=== PATIENT | female | born 1955 | race Two or more races ===

== ENCOUNTER 2020-06-09 17:57 | Emergency (ER) | payer OTHER, SELFPAY ==
--- NOTE | 2020-06-09 | ECG_ITS ---
Test Reason : CHEST PAIN Blood Pressure : / mmHG Vent. Rate : 070 BPM Atrial Rate : 070 BPM P-R Int : 152 ms QRS Dur : 074 ms QT Int : 384 ms P-R-T Axes : 066 -11 037 degrees QTc Int : 414 ms Normal sinus rhythm Normal ECG No previous ECGs available Referred By: Azucena Blair Electronically Signed By:MADHU ROTHMAN
--- NOTE | ~2020-06-09 | XR_ITS ---
EXAMINATION: XR CHEST CLINICAL INFORMATION: Chest pain COMPARISON: None TECHNIQUE: Frontal view of the chest was obtained. FINDINGS: Normal symmetric lung volumes. No parenchymal consolidation. No pleural effusion. No pneumothorax. Cardiomediastinal silhouette and pulmonary vascularity are within normal limits. No acute osseous abnormalities. XR/XR chest 1V IMPRESSION: Unremarkable examination.
[2020-06-09 18:00] VITALS: BP 158/90; PULSE 70; RESP 16; TEMP 37.1; O2SAT 99
[2020-06-09 18:11] VITALS: BP 157/91; PULSE 69; RESP 18; TEMP 36.7; O2SAT 99; BMI 28.9
--- NOTE | 2020-06-09 18:31 | ED_ITS ---
HPI - Chest Pain General Chief Complaint: Chest Pain Stated Complaint: chest pain Time Seen by Provider: 06/09/20 18:29 Source: patient Mode of arrival: ambulatory Limitations: no limitations History of Present Illness HPI narrative: 64-year-old female well known in the emergency department with chest pain, patient stated that chest pain started 2 weeks ago, pain is progressively getting worse, pain started as intermittent now with progressively more or less constant throughout the day, pain felt like something stuck in the middle of her chest but patient reported no problem with swallowing fluid and solid food, pain is not associated with any other symptoms, never had this pain before, patient otherwise declined any other symptoms of shortness of breath. No recent travel, no lower extremity swelling or pain, no history of PE or DVT. Related Data Previous Rx's Medication Instructions Recorded omeprazole magnesium [Prilosec OTC] 20 mg PO DAILY #30 tab 06/09/20 Allergies Allergy/AdvReac Type Severity Reaction Status Date / Time morphine [MORPHINE] Allergy Unknown ITCHING Unverified 12/24/19 15:13 wheat [WHEAT] AdvReac Unknown NAUSEA/VOMI Unverified 12/24/19 15:13 TING Review of Systems Review of Systems: All other systems are reviewed and are negative Constitutional: Reports as per HPI and Reports no additional constitutional complaints Eyes: Reports as per HPI and Reports no additional eye complaints Reports system reviewed and no additional complaints, except as documented Cardiovascular: Reports as per HPI and Reports no additional cardiovascular complaints Respiratory: Reports as per HPI and Reports no additional respiratory complaints Gastrointestinal: Reports as per HPI and Reports no additional gastrointestinal complaints Genitourinary: Reports no additional female genitourinary complaints Musculoskeletal: Reports no additional musculoskeletal complaints Skin/Breast: Reports system reviewed and no additional complaints, except as docu Psychiatric: Reports no additional psychiatric complaints Endocrine: Reports no additional endocrine complaints Hematologic/Lymphatic: Reports no additional hematologic/lymphatic complaints Allergic/Immunologic: Reports no additional allergic/immunologic complaints Reports system reviewed and no additional complaints, except as documented and R eports Abnormal speech present [facility] Past Medical History Medical History No known health problems Social History Social History Alcohol intake: never Smoking Status: Never smoker Use of substances other than those prescribed or required for medical reasons: No Advance Directives: No Advance Directives Information Provided: Yes Physical Exam Vital Signs: Vital Signs: Last Vital Signs Temp 98.0 F 06/09/20 18:11 Pulse 69 06/09/20 18:11 Resp 18 06/09/20 18:11 BP 157/91 H 06/09/20 18:11 Pulse Ox 99 06/09/20 18:11 Body Mass Index 28.9 Vital signs have been reviewed as appeared to be correct. Blood pressure in the high range. Heart rate normal. Respiration rate normal. Temperature normal. Oxygen saturation normal. Appearance: Alert. Oriented X3. No acute distress. Head: Normal external exam. Normocephalic. Atraumatic. No [place] signs noted. No raccoon eyes noted Eyes: PERRLA. EOMI. Conjunctiva and sclera normal. Eyelids normal. ENT: TM's Normal. Pharynx normal. Uvula midline. Moist mucous membranes. No trismus noted. No drooling noted. No muffled voice noted. Neck: Normal inspection. Neck supple. FROM. No adenopathy. Thyroid Normal. No meningeal signs. No neck mass noted. CVS: Normal heart rate and rhythm. Heart sound normal. No murmurs noted. Pulses normal throughout. Respiratory: No respiratory distress. Painless inspiration. Breath sounds josiane l. No wheezes/rales/rhonchi noted. Chest nontender. No accessory muscle usage noted or decreased air movement noted. Abdomen: Soft and nontender. Bowel sounds normal in all 4 quadrants. No distention noted. No organomegaly noted. No visible injury noted. Back: No CVA tenderness. Full range of motion noted. Skin: Skin warm and dry. Normal skin color. Normal skin turgor. No rashes/lesions/lacerations noted. Extremities: No lower extremity edema. Extremities exhibit normal range of motion. Extremities nontender. Neuro: Oriented X 3. No motor deficit. No sensory deficit. Reflexes normal. Course Course Course Narrative: Assessment and plan. 64-year-old female came in with mid chest pain for the past 2 weeks (feel like food stuck in her chest). Patient has unremarkable workup for chest pain,HEART SCORE OF 1. PATIENT HAS LOW RISK OF PE WITH A NEGATIVE D-DIMER. Physical exam and clinical story is more consistent of esophagitis patient felt better with Maalox. Will start the patient on Prilosec and follow up with sustainable design consultant as an outpatient. MDM - Chest Pain Lab Data Attestation: I reviewed the patient's lab results. Result diagrams: 06/09/20 19:14 06/09/20 19:14 Labs: Lab Results 06/09/20 06/09/20 06/09/20 Range/Units 19:14 19:14 19:14 WBC 3.8 L (4.8-10.8) X10*3/uL RBC 4.02 L (4.20-5.50) X10*6/uL Hgb 11.0 L (12.0-16.0) g/dl Hct 34.2 L (37-47) % MCV 85.1 (80-98) fL MCH 27.4 (27.0-33.0) pg MCHC 32.2 (31.0-35.0) g/dl RDW 14.1 (11.0-16.0) % Plt Count 276 (160-400) X10*3/uL MPV 9.7 (9.4-12.3) fL Immature Gran % (Auto) 0.0 (0.0-0.4) % Neut % (Auto) 39.1 L (45-73) % Lymph % (Auto) 52.0 H (20-40) % [place] % (Auto) 6.8 (2-11) % Eos % (Auto) 1.8 (0-4) % Baso % (Auto) 0.3 (0-2) % Lymph # (Auto) 2.0 (1.2-4.9) X10*3/uL [place] # (Auto) 0.3 (0.1-1.2) X10*3/uL Eos # (Auto) 0.1 (0.0-0.4) X10*3/uL Baso # (Auto) 0.0 (0.0-0.2) X10*3/uL Abs Immat Gran (auto) 0.00 (0.00-0.03) X10*3/uL Absolute Neuts (auto) 1.5 L (2.0-8.3) X10*3/uL Absolute Nucleated RBC 0.000 (0.0-0.012) X10*3/uL Nucleated RBC % (auto) 0.0 (0.0-0.2) /100WBC D-Dimer < 200 NG/ML Sodium 140 (135-145) mmol/L Potassium 4.2 (3.3-5.1) mmol/L Chloride 107 (96-108) mmol/L Carbon Dioxide 24 (22-29) mmol/L Anion Gap 13 (12-20) BUN 17 H (9-16) mg/dL Creatinine 1.06 (0.5-1.4) mg/dL Estim Creat Clear Calc 51.0 Estimated GFR 53 Random Glucose 87 (60-115) mg/dL Calcium 9.2 (8.4-10.2) mg/dL Total Bilirubin 0.2 (0.0-1.0) mg/dL Direct Bilirubin < 0.2 (0.0-0.5) mg/dL AST 22 (5-31) U/L ALT 24 (0-31) U/L Alkaline Phosphatase 106 (39-117) U/L Troponin I High Sens (<3.5-17.0) ng/L Total Protein 6.7 (6.5-8.0) g/dL Albumin 4.2 (3.5-5.0) g/dL Lipase 29 (8-78) U/L 03// Range/Units 19:14 WBC (4.8-10.8) X10*3/uL RBC (4.20-5.50) X10*6/uL Hgb (12.0-16.0) g/dl Hct (37-47) % MCV (80-98) fL MCH (27.0-33.0) pg MCHC (31.0-35.0) g/dl RDW (11.0-16.0) % Plt Count (160-400) X10*3/uL MPV (9.4-12.3) fL Immature Gran % (Auto) (0.0-0.4) % Neut % (Auto) (45-73) % Lymph % (Auto) (20-40) % [place] % (Auto) (2-11) % Eos % (Auto) (0-4) % Baso % (Auto) (0-2) % Lymph # (Auto) (1.2-4.9) X10*3/uL [place] # (Auto) (0.1-1.2) X10*3/uL Eos # (Auto) (0.0-0.4) X10*3/uL Baso # (Auto) (0.0-0.2) X10*3/uL Abs Immat Gran (auto) (0.00-0.03) X10*3/uL Absolute Neuts (auto) (2.0-8.3) X10*3/uL Absolute Nucleated RBC (0.0-0.012) X10*3/uL Nucleated RBC % (auto) (0.0-0.2) /100WBC D-Dimer NG/ML Sodium (135-145) mmol/L Potassium (3.3-5.1) mmol/L Chloride (96-108) mmol/L Carbon Dioxide (22-29) mmol/L Anion Gap (12-20) BUN (9-16) mg/dL Creatinine (0.5-1.4) mg/dL Estim Creat Clear Calc Estimated GFR Random Glucose (60-115) mg/dL Calcium (8.4-10.2) mg/dL Total Bilirubin (0.0-1.0) mg/dL Direct Bilirubin (0.0-0.5) mg/dL AST (5-31) U/L ALT (0-31) U/L Alkaline Phosphatase (39-117) U/L Troponin I High Sens < 3.5 (<3.5-17.0) ng/L Total Protein (6.5-8.0) g/dL Albumin (3.5-5.0) g/dL Lipase (8-78) U/L Imaging Data Chest x-ray: Radiologist's impression: Unremarkable examination. ECG Data ECG #1: Interpretation: Normal sinus rhythm at 70 beats per minutes, left axis deviation, normal intervals, no ST-T changes. Discharge Plan Discharge Clinical Impression: Chest pain, non-cardiac, Esophagitis Patient Disposition: Home, Self-Care Instructions: Esophagitis (ED) Prescriptions: New omeprazole magnesium [Prilosec OTC] 20 mg tablet,delayed release (DR/EC) 20 mg PO DAILY Qty: 30 RF: 0 Referrals: Gerald Nicole MD [Physician] - 1 week
[2020-06-09] MEDS: Magnesium Hydrox/Alum Hydrox 30 ML ORAL.SUSP PO (19:03)
[2020-06-09 19:18] LABS: MANUAL DIFF FLAG NO
[2020-06-09 19:30] LABS: Basophils Percent Auto 0.3 % (0-2); Eosinophils Absolute Auto 0.1 X10*3/uL (0.0-0.4); Eosinophils Percent Auto 1.8 % (0-4); Hematocrit 34.2 % (37-47); Mean Corpuscular HGB Conc 32.2 g/dl (31.0-35.0); Mean Corpuscular Hemoglobin 27.4 pg (27.0-33.0); Mean Corpuscular Volume 85.1 fL (80-98); Mean Platelet Volume 9.7 fL (9.4-12.3); Monocytes Absolute Auto 0.3 X10*3/uL (0.1-1.2); Monocytes Percent Auto 6.8 % (2-11); Neutrophils Absolute Auto 1.5 X10*3/uL (2.0-8.3); Neutrophils Percent Auto 39.1 % (45-73); Platelet Count 276 X10*3/uL (160-400); Red Blood Count 4.02 X10*6/uL (4.20-5.50); Red Cell Distribution Width 14.1 % (11.0-16.0); White Blood Count 3.8 X10*3/uL (4.8-10.8)
[2020-06-09 19:35] LABS: D Dimer < 200 NG/ML
[2020-06-09 20:04] LABS: Alanine Aminotransferase 24 U/L (0-31); Albumin Level 4.2 g/dL (3.5-5.0); Alkaline Phosphatase 106 U/L (39-117); Anion Gap 13 (12-20); Aspartate Amino Transferase 22 U/L (5-31); Bilirubin Direct < 0.2 mg/dL (0.0-0.5); Bilirubin Total 0.2 mg/dL (0.0-1.0); Blood Urea Nitrogen 17 mg/dL (9-16); Calcium 9.2 mg/dL (8.4-10.2); Carbon Dioxide 24 mmol/L (22-29); Chloride 107 mmol/L (96-108); Estimated Glomerular Filt Rate 53; Glucose Random 87 mg/dL (60-115); Lipase 29 U/L (8-78); Potassium 4.2 mmol/L (3.3-5.1); Sodium 140 mmol/L (135-145); Total Protein 6.7 g/dL (6.5-8.0)
[2020-06-09 20:12] LABS: Troponin-I High Sensitivity < 3.5 ng/L (<3.5-17.0)
[2020-06-09 20:56] VITALS: BP 146/86; PULSE 80; RESP 18; TEMP 36.8; O2SAT 99
== END 2020-06-09 21:08 | disposition home or self-care (01) ==
PROVIDERS: Emergency Provider Emergency Medicine; PCP Physician Assistant Medical
DX: R07.89 Other chest pain (principal); K20.90 Esophagitis, unspecified without bleeding; R13.10 Dysphagia, unspecified; R09.89 Other specified symptoms and signs involving the circulatory and respiratory systems; Z79.899 Other long term (current) drug therapy
CPT/HCPCS: 36415; 71045; 80048; 80076; 83690; 84484; 85025; 85379; 93005; 99284

== ENCOUNTER 2023-06-07 11:19 | Outpatient (AMB) | payer OTHER, SELFPAY ==
[2023-06-07 11:35] VITALS: BP 132/82; PULSE 69; O2SAT 99; BMI 28.2
--- NOTE | 2023-06-07 11:35 | MHC.PC.OV ---
Vital Signs 06/07/23 11:35 Height 5 ft 2 in Weight 154 lb BMI 28.2 BP 132/82 Blood Pressure Location Lt brachial Position Sitting Pulse 69 Pulse Source Pulse Oximeter Pulse Oximetry (%) 99 Oxygen Delivery Method Room Air Intake Visit Reasons: NPV/requesting phy Intake Note: Pt is here today for New patient visit PE. Allergies morphine [MORPHINE] Allergy (Unknown, Unverified 06/07/23 11:39) ITCHING wheat [WHEAT] Adverse Reaction (Unknown, Unverified 06/07/23 11:39) NAUSEA/VOMITING eggs Allergy (Intermediate, Uncoded 06/07/23 11:40) rash, vomiting Medication List - Last Reconciled 06/07/23 by Rhonda Ram MD amlodipine 5 mg PO DAILY omeprazole magnesium (Prilosec OTC) 20 mg PO DAILY Tobacco use date assessed: 06/07/23 Fall risk assessment: No Falls in past year Last assessed Fall Risk: 06/07/23 Dental Screening Dental Screen Date: 06/07/23 Did you have a dental visit in the last 12 months?: Yes Did you have a dental problem in the last 6 months where you did not have access to dental care?: No Was dental information given to patient?: Patient has dentist HPI NPV/requesting phy HPI Details Pt presents for PE. Past medical history includes hypertension. 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 1. Little interest or pleasure in doing things: not at all 2. Feeling down, depressed, or hopeless: not at all 3. Trouble falling or staying asleep, or sleeping too much: not at all 4. Feeling tired or having little energy: not at all 5. Poor appetite or overeating: not at all 6. Feeling bad about yourself - or that you are a failure or have let yourself or your family down: not at all 7. Trouble concentrating on things, such as reading the newspaper or watching television: not at all 8. Moving or speaking so slowly that other people could have noticed. Or the opposite - being so fidgety or restless that you have been moving around a lot more than usual: not at all 9. Thoughts that you would be better off or of hurting yourself in some way: not at all Total score: 0 Depression Screening Interpretation: Negative Depression Screening Done: Yes Source: Developed by Drs. Arpan Cr, Melissa Barnes, Jason Hernandez and colleagues, with an educational jeanne from [employer]. Thrive Questionnaire Date Thrive assessed: 06/07/23 I am a: Patient What is your living situation today?: I have a steady place to live Within the past 12 months, did the food you bought not last and you didn't have the money to get more?: Never true Within the past 12 months, did you worry whether your food would run out before you got money to buy more?: Never true Do you have trouble paying for medicines?: No Do you have trouble getting transportation to medical appointments?: No Do you have trouble paying your heating and electricity bill?: No Do you have trouble taking care of your child, family member or friend?: No Do you have trouble with day-to-day activities such as bathing, preparing meals, shopping, managing finances, etc.?: No Are you currently unemployed and looking for a job?: No Are you interested in more education?: No Please select the resources that you would like help with: None Currently or been in a relationship where the following occur: no concerns reported THRIVE Score: 0 AUDIT C Alcohol Use Questionnaire (AUDIT-C) 1. How often do you have a drink containing alcohol?: Monthly or less 2. How many drinks containing alcohol do you have on a typical day when you are drinking?: 1 or 2 3. How often do you have six or more drinks on one occasion?: Never Total Score: 1 KIANA-7 AMB Questionnaire KIANA-7 Date KIANA - 7 assessed: 06/07/23 Feeling nervous, anxious, or on edge: 0 = Not at all Not being able to stop or control worryin = Not at all Worrying too much about different things: 0 = Not at all Trouble relaxin = Not at all Being so restless that it is hard to sit still: 0 = Not at all Becoming easily annoyed or irritable: 0 = Not at all Feeling afraid as if something awful might happen: 0 = Not at all Total KIANA-7 score (0-4 normal; 5-9 mild; 10-14 moderate; 15-21 severe): 0 Source: Developed by Drs. Arpan Cr, Melissa Barnes, Jason Hernandez and colleagues, with an educational jeanne from [employer]. Review of Systems Const All systems reviewed & are unremarkable except as noted in HPI and below Reports no additional complaints Eyes Reports no additional complaints ENT Reports no additional complaints Card Reports no additional complaints Resp Reports no additional complaints GI Reports no additional complaints Reports no additional complaints Musc Reports no additional complaints Physical exam (Primary Care) Vital Signs: Last Vital Signs Pulse 69 06/07/23 11:35 BP 132/82 06/07/23 11:35 Pulse Ox 99 06/07/23 11:35 Oxygen Delivery Method Room Air 06/07/23 11:35 BMI result Body Mass Index 28.2 Tobacco/Smoking Status: Tobacco use Status Tobacco use date assessed 06/07/23 06/07/23 11:46 Patient Tobacco Use Status Never used Tobacco 06/07/23 11:46 e-Cigarette/Vaping Use Never Used 06/07/23 11:46 PHQ-9: PHQ-9 Score PHQ-9: Total score 0 06/07/23 11:46 Depression Screening Interpretation: Negative Thrive Assessment: Date of Thrive Assessment Date Thrive assessed 06/07/23 06/07/23 11:46 Currently or been in a relationship where the following occur: no concerns reported Const General: no acute distress HENMT Head: Yes normal to inspection Ears: hearing grossly normal bilaterally General nose exam: Normal external nose present Face and sinus: Yes normal facial exam Mouth: Normal oral and palatal mucosa present Throat: Yes posterior oropharynx normal Eyes General: appearance normal, both eyes and all related structures Neck Neck: Yes no lymphadenopathy and Yes supple Resp Effort & Inspection: normal respiratory effort Auscultation: clear to auscultation bilaterally Cardio Rhythm: regular rhythm Heart sounds: S1 normal heart sound present and S2 normal heart sound present GI Inspection: Yes normal to inspection Palpation (GI): Soft to palpation Percussion: Yes normal to percussion Auscultation: normal bowel sounds Assessment and Plan Assessment & Plan (1) Annual physical exam: Comment: Mammogram at [facility] 2022, DEXA 2019 Code(s): Z00.00 - Encounter for general adult medical examination without abnormal findings Plan: Well-balanced diet regular physical activity discussed with the patient she will return for fasting blood work. She has an appointment with destination sign repairer next week and is up-to-date with the mammogram at [facility]. (2) HTN (hypertension): Code(s): I10 - Essential (primary) hypertension Plan: Patient will restart amlodipine and will follow-up in 1 month (3) GERD (gastroesophageal reflux disease): Code(s): K21.9 - Gastro-esophageal reflux disease without esophagitis Plan: anti GERD diet regular exercise discussed with the patient (4) Hx of colonoscopy: Comment: Dr. James 10/2018 negative Code(s): Z98.890 - Other specified postprocedural states Orders: Orders Complete Blood Count Auto Diff 1 Month I10 - Essential (primary) hypertension, K21.9 - Gastro-esophageal reflux disease without esophagitis, Z00.00 - Encounter for general adult medical examination without abnormal findings, Z01.419 - Encounter for gynecological examination (general) (routine) without abnormal findings, Z98.890 - Other specified postprocedural states Comprehensive [place]. Panel Fast 1 Month I10 - Essential (primary) hypertension, K21.9 - Gastro-esophageal reflux disease without esophagitis, Z00.00 - Encounter for general adult medical examination without abnormal findings, Z01.419 - Encounter for gynecological examination (general) (routine) without abnormal findings, Z98.890 - Other specified postprocedural states TSH reflex Free T4 1 Month I10 - Essential (primary) hypertension, K21.9 - Gastro-esophageal reflux disease without esophagitis, Z00.00 - Encounter for general adult medical examination without abnormal findings, Z01.419 - Encounter for gynecological examination (general) (routine) without abnormal findings, Z98.890 - Other specified postprocedural states Vitamin D 25-OH Total 1 Month I10 - Essential (primary) hypertension, K21.9 - Gastro-esophageal reflux disease without esophagitis, Z00.00 - Encounter for general adult medical examination without abnormal findings, Z01.419 - Encounter for gynecological examination (general) (routine) without abnormal findings, Z98.890 - Other specified postprocedural states UA w Microscopic 1 Month I10 - Essential (primary) hypertension, K21.9 - Gastro-esophageal reflux disease without esophagitis, Z00.00 - Encounter for general adult medical examination without abnormal findings, Z01.419 - Encounter for gynecological examination (general) (routine) without abnormal findings, Z98.890 - Other specified postprocedural states Lipid Panel 1 Month I10 - Essential (primary) hypertension, K21.9 - Gastro-esophageal reflux disease without esophagitis, Z00.00 - Encounter for general adult medical examination without abnormal findings, Z01.419 - Encounter for gynecological examination (general) (routine) without abnormal findings, Z98.890 - Other specified postprocedural states Medications: New amlodipine 5 mg PO DAILY 90 tabs 1RF Coding Level of Care Code New Pt Prev Care >65yr (47219) Diagnoses Annual physical exam Z00.00 HTN (hypertension) I10 GERD (gastroesophageal reflux disease) K21.9 Hx of colonoscopy Z98.890
== END 2023-06-07 12:37 | disposition home or self-care (01) ==
PROVIDERS: PCP Physician Assistant Medical; Visit Provider Internal Medicine
DX: Z00.00 Encounter for general adult medical examination without abnormal findings (principal); I10 Essential (primary) hypertension; K21.9 Gastro-esophageal reflux disease without esophagitis; Z98.890 Other specified postprocedural states
CPT/HCPCS: 99387

== ENCOUNTER 2023-07-08 09:06 | Outpatient (REF) | payer OTHER, SELFPAY ==
[2023-07-08 10:14] LABS: MANUAL DIFF FLAG NO
[2023-07-08 10:29] LABS: Basophils Percent Auto 0.3 % (0-2); Eosinophils Absolute Auto 0.1 X10*3/uL (0.0-0.4); Eosinophils Percent Auto 2.6 % (0-4); Hematocrit 36.3 % (37.0-47.0); Hemoglobin 12.1 g/dl (12.0-16.0); Lymphocytes Absolute Auto 1.6 X10*3/uL (1.2-4.9); Lymphocytes Percent Auto 52.6 % (20-40); Mean Corpuscular HGB Conc 33.3 g/dl (31.0-35.0); Mean Corpuscular Hemoglobin 27.6 pg (27.0-33.0); Mean Corpuscular Volume 82.9 fL (80.0-98.0); Mean Platelet Volume 9.9 fL (9.4-12.3); Monocytes Absolute Auto 0.2 X10*3/uL (0.1-1.2); Monocytes Percent Auto 7.2 % (2-11); Neutrophils Absolute Auto 1.1 x10*3/uL (2.0-8.3); Neutrophils Percent Auto 37.3 % (45-73); Platelet Count 290 X10*3/uL (160-400); Red Blood Count 4.38 X10*6/uL (4.20-5.50); Red Cell Distribution Width 13.9 % (11.0-16.0); White Blood Count 3.1 X10*3/uL (4.8-10.8)
[2023-07-08 10:41] LABS: Alanine Aminotransferase 31 U/L (0-31); Albumin Level 4.2 g/dL (3.5-5.0); Alkaline Phosphatase 91 U/L (39-117); Anion Gap 10 (12-20); Aspartate Amino Transferase 21 U/L (5-31); Bilirubin Total 0.3 mg/dL (0.0-1.0); Blood Urea Nitrogen 14 mg/dL (9-16); Calcium 9.5 mg/dL (8.4-10.2); Carbon Dioxide 26 mmol/L (22-29); Chloride 107 mmol/L (96-108); Cholesterol 210 mg/dL (<200); Estimated Glomerular Filt Rate > 60; Glucose Fasting 94 mg/dL (60-99); HDL Cholesterol 52 mg/dL (>40); LDL Cholesterol Calculated 142 mg/dL (<100); Sodium 139 mmol/L (135-145); Total Protein 7.1 g/dL (6.5-8.0); Triglycerides 83 mg/dL (<150)
[2023-07-08 10:50] LABS: TSH reflex Free T4 1.97 uIU/mL (0.32-4.0); Vitamin D 25-OH Total 36.5 ng/mL (>30)
[2023-07-08 10:55] LABS: Appearance Urine Clear; Color Urine Yellow; Glucose Urine UA Negative (Negative); Leukocyte Esterase Urine Trace (Negative); Nitrite Urine Negative (Negative); UMIC TRIGGER UA YES; Urine Blood Negative (Negative); Urine Ketones Negative (Negative); Urine Protein Negative (Neg-Trace)
[2023-07-08 11:17] LABS: Bacteria Urine None Seen (None Seen); Hyaline Casts Urine 0-2 /LPF (0-2); RBC Urine 0-2 /HPF (0-2); Squamous Epithelial Cell Urine 0-2 /HPF (0-2); WBC Urine 0-5 /HPF (0-5)
== END 2023-07-08 09:07 | disposition home or self-care (01) ==
LOC: HO.HMGCLDS 09:06
PROVIDERS: PCP Internal Medicine; Visit Provider Internal Medicine
DX: Z00.00 Encounter for general adult medical examination without abnormal findings (principal); I10 Essential (primary) hypertension; K21.9 Gastro-esophageal reflux disease without esophagitis; Z98.890 Other specified postprocedural states
CPT/HCPCS: 36415; 80053; 80061; 81001; 82306; 84443; 85025

== ENCOUNTER 2023-07-19 10:42 | Outpatient (AMB) | payer OTHER, SELFPAY ==
--- NOTE | 2023-07-19 10:51 | MHC.PC.OV ---
Vital Signs 07/19/23 10:52 Height 5 ft 2 in Weight 155 lb BMI 28.3 BP 136/85 Blood Pressure Location Rt brachial Position Sitting Pulse 80 Pulse Source Pulse Oximeter Pulse Oximetry (%) 98 Oxygen Delivery Method Room Air Intake Visit Reasons: 1 month follow up HTN Intake Note: Pt is here today for 1 month follow up visit. Allergies morphine [MORPHINE] Allergy (Unknown, Unverified 07/19/23 10:54) ITCHING wheat [WHEAT] Adverse Reaction (Unknown, Unverified 07/19/23 10:54) NAUSEA/VOMITING eggs Allergy (Intermediate, Uncoded 07/19/23 10:54) rash, vomiting Medication List - Last Reconciled 07/19/23 by Rhonda Ram MD amlodipine 10 mg PO DAILY omeprazole magnesium (Prilosec OTC) 20 mg PO DAILY Tobacco use date assessed: 06/07/23 Dental Screening Dental Screen Date: 06/07/23 HPI 1 month follow up HTN HPI Details Patient presents for the follow-up on hypertension. She has been taking 5 mg of amlodipine for the last month. 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 Arpan Cr, Melissa Barnes, Jason Hernandez and colleagues, with an educational jeanne from [employer]. Review of Systems Const All systems reviewed & are unremarkable except as noted in HPI and below ENT Reports no additional complaints Card Reports no additional complaints Resp Reports no additional complaints GI Reports no additional complaints Reports no additional complaints Physical exam (Primary Care) Vital Signs: Last Vital Signs Pulse 80 07/19/23 10:52 Pulse Ox 98 07/19/23 10:52 Oxygen Delivery Method Room Air 07/19/23 10:52 BMI result Body Mass Index 28.3 Tobacco/Smoking Status: Tobacco use Status Tobacco use date assessed 06/07/23 07/19/23 10:52 Patient Tobacco Use Status Never used Tobacco 07/19/23 10:52 e-Cigarette/Vaping Use Never Used 07/19/23 10:52 Thrive Assessment: Date of Thrive Assessment Date Thrive assessed 06/07/23 07/19/23 10:52 Const General: no acute distress HENMT Head: Yes normal to inspection Eyes General: appearance normal, both eyes and all related structures Neck Neck: Yes supple Resp Effort & Inspection: normal respiratory effort Auscultation: clear to auscultation bilaterally Cardio Rhythm: regular rhythm Heart sounds: S1 normal heart sound present and S2 normal heart sound present GI Inspection: Yes normal to inspection Assessment and Plan Assessment & Plan (1) HTN (hypertension): Code(s): I10 - Essential (primary) hypertension Plan: Increase amlodipine to 10 mg a day low-sodium diet regular physical activity discussed with the patient follow-up in 2 months (2) GERD (gastroesophageal reflux disease): Code(s): K21.9 - Gastro-esophageal reflux disease without esophagitis Plan: Continue PPI and anti GERD diet Medications: New amlodipine 10 mg PO DAILY 90 tabs 0RF Discontinued amlodipine Discontinued Reason: Change Referral Type 5 mg PO DAILY 90 tabs 1RF Coding Level of Care Code Est Pt Level 3 (09586) Diagnoses HTN (hypertension) I10 GERD (gastroesophageal reflux disease) K21.9
[2023-07-19 10:52] VITALS: BP 136/85; PULSE 80; O2SAT 98; BMI 28.3
== END 2023-07-19 11:44 | disposition home or self-care (01) ==
PROVIDERS: PCP Internal Medicine; Visit Provider Internal Medicine
DX: I10 Essential (primary) hypertension (principal); K21.9 Gastro-esophageal reflux disease without esophagitis
CPT/HCPCS: 99213

== ENCOUNTER 2024-06-29 11:18 | Outpatient (AMB) | payer OTHER, SELFPAY ==
[2024-06-29 11:28] VITALS: BP 128/82; PULSE 80; RESP 18; TEMP 37.3; O2SAT 99; BMI 27.8
--- NOTE | 2024-06-29 11:28 | MHC.PC.OV ---
Vital Signs 06/29/24 11:28 Height 5 ft 2 in Weight 152 lb BMI 27.8 BP 128/82 Blood Pressure Location Rt brachial Position Sitting Respiration 18 Pulse 80 Pulse Source Pulse Oximeter Temp 99.1 F Temp Source Oral Pulse Oximetry (%) 99 Oxygen Delivery Method Room Air Intake Visit Reasons: Annual PE Intake Note: Pt is here today for PE. Allergies morphine [MORPHINE] Allergy (Unknown, Unverified 06/29/24 11:28) ITCHING dallin Allergy (Verified 06/29/24 11:31) rash itchy wheat [WHEAT] Adverse Reaction (Unknown, Unverified 06/29/24 11:28) NAUSEA/VOMITING eggs Allergy (Intermediate, Uncoded 06/29/24 11:28) rash, vomiting Medication List - Last Reconciled 06/29/24 by Rhonda Ram MD amlodipine 10 mg PO DAILY multivitamin 1 tab PO DAILY Tobacco use date assessed: 06/29/24 Fall risk assessment: No Falls in past year Last assessed Fall Risk: 06/29/24 Dental Screening Dental Screen Date: 06/29/24 Did you have a dental visit in the last 12 months?: Yes Did you have a dental problem in the last 6 months where you did not have access to dental care?: No Was dental information given to patient?: Patient has dentist HPI Annual PE HPI Details Pt presents for PE. 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 1. Little interest or pleasure in doing things: not at all 2. Feeling down, depressed, or hopeless: not at all 3. Trouble falling or staying asleep, or sleeping too much: not at all 4. Feeling tired or having little energy: not at all 5. Poor appetite or overeating: not at all 6. Feeling bad about yourself - or that you are a failure or have let yourself or your family down: not at all 7. Trouble concentrating on things, such as reading the newspaper or watching television: not at all 8. Moving or speaking so slowly that other people could have noticed. Or the opposite - being so fidgety or restless that you have been moving around a lot more than usual: not at all 9. Thoughts that you would be better off or of hurting yourself in some way: not at all Total score: 0 Depression Screening Interpretation: Negative Depression Screening Done: Yes 32685 - PHQ-9 Billing: Yes Source: Developed by Drs. Arpan Cr, Melissa Barnes, Jason Hernandez and colleagues, with an educational jeanne from [employer]. Thrive Questionnaire Date Thrive assessed: 06/29/24 I am a: Patient What is your living situation today?: I have a steady place to live Within the past 12 months, did the food you bought not last and you didn't have the money to get more?: Never true Within the past 12 months, did you worry whether your food would run out before you got money to buy more?: Never true Do you have trouble paying for medicines?: No Do you have trouble getting transportation to medical appointments?: No Do you have trouble paying your heating and electricity bill?: No Do you have trouble taking care of your child, family member or friend?: No Do you have trouble with day-to-day activities such as bathing, preparing meals, shopping, managing finances, etc.?: No Are you currently unemployed and looking for a job?: No Are you interested in more education?: No Please select the resources that you would like help with: None Currently or been in a relationship where the following occur: No concerns reported THRIVE Score: 0 AUDIT C Alcohol Use Questionnaire (AUDIT-C) 1. How often do you have a drink containing alcohol?: Never 3. How often do you have six or more drinks on one occasion?: Never Total Score: 0 KIANA-7 AMB Questionnaire KIANA-7 Date KIANA - 7 assessed: 06/29/24 Feeling nervous, anxious, or on edge: 0 = Not at all Not being able to stop or control worryin = Not at all Worrying too much about different things: 0 = Not at all Trouble relaxin = Not at all Being so restless that it is hard to sit still: 0 = Not at all Becoming easily annoyed or irritable: 0 = Not at all Feeling afraid as if something awful might happen: 0 = Not at all Total KIANA-7 score (0-4 normal; 5-9 mild; 10-14 moderate; 15-21 severe): 0 Source: Developed by Drs. Arpan Cr, Melissa Barnes, Jason Hernandez and colleagues, with an educational jeanne from [employer]. KIANA-7 Assessment Billing KIANA-7 Assessment Tool: KIANA-7 Assessment 18237 Review of Systems Const All systems reviewed & are unremarkable except as noted in HPI and below Reports no additional complaints Eyes Reports no additional complaints ENT Reports no additional complaints Card Reports no additional complaints Resp Reports no additional complaints GI Reports no additional complaints Reports no additional complaints Physical exam (Primary Care) Vital Signs: Last Vital Signs Temp 99.1 F 06/29/24 11:28 Pulse 80 06/29/24 11:28 Resp 18 06/29/24 11:28 BP 128/82 06/29/24 11:28 Pulse Ox 99 06/29/24 11:28 Oxygen Delivery Method Room Air 06/29/24 11:28 BMI result Body Mass Index 27.8 Tobacco/Smoking Status: Tobacco use Status Tobacco use date assessed 06/29/24 06/29/24 11:30 Patient Tobacco Use Status Never used Tobacco 06/29/24 11:30 e-Cigarette/Vaping Use Never Used 06/29/24 11:30 PHQ-9: PHQ-9 Score PHQ-9: Total score 0 06/29/24 12:17 Depression Screening Interpretation: Negative Thrive Assessment: Date of Thrive Assessment Date Thrive assessed 06/29/24 06/29/24 11:30 Currently or been in a relationship where the following occur: No concerns reported Const General: no acute distress HENMT Head: Yes normal to inspection Ears: TM's normal bilaterally Face and sinus: Yes normal facial exam Eyes General: appearance normal, both eyes and all related structures Neck Neck: Yes no lymphadenopathy and Yes supple Resp Effort & Inspection: normal respiratory effort Auscultation: clear to auscultation bilaterally Cardio Rhythm: regular rhythm Heart sounds: S1 normal heart sound present and S2 normal heart sound present GI Inspection: Yes normal to inspection Palpation (GI): Soft to palpation Percussion: Yes normal to percussion Auscultation: normal bowel sounds Coding Level of Care Code Est Pt Prev Care >65y(42362) Diagnoses HTN (hypertension) I10 Annual physical exam Z00.00 Additional Codes KIANA-7 Assessment Billing - KIANA-7 Assessment Tool: KIANA-7 Assessment 71691 ([id number]) PHQ-9 - 72405 - PHQ-9 Billing: Yes ([id number]) Assessment & Plan Assessment & Plan (1) HTN (hypertension): Code(s): I10 - Essential (primary) hypertension Category: Medical Plan: Continue amlodipine (2) Annual physical exam: Comment: Mammogram at [facility] 2023, DEXA 2024 by document imaging specialist, colonoscopy negative Dr. James 2023, repeat in 5 years because of history of polyps Code(s): Z00.00 - Encounter for general adult medical examination without abnormal findings Category: Medical Plan: Well-balanced diet regular physical activity discussed with the patient she is up-to-date with the mammogram, colonoscopy last year a [place], and Pap by document imaging specialist. Patient has DEXA done by document imaging specialist but results are not available Orders: Orders Lipid Panel Today E55.9 - Vitamin D deficiency, unspecified, I10 - Essential (primary) hypertension, Z00.00 - Encounter for general adult medical examination without abnormal findings Comprehensive [place]. Panel Fast 1 Year I10 - Essential (primary) hypertension, Z00.00 - Encounter for general adult medical examination without abnormal findings Complete Blood Count Auto Diff 1 Year I10 - Essential (primary) hypertension, Z00.00 - Encounter for general adult medical examination without abnormal findings Vitamin D 25-OH Total 1 Year I10 - Essential (primary) hypertension, Z00.00 - Encounter for general adult medical examination without abnormal findings Lipid Panel 1 Year I10 - Essential (primary) hypertension, Z00.00 - Encounter for general adult medical examination without abnormal findings TSH reflex Free T4 1 Year I10 - Essential (primary) hypertension, Z00.00 - Encounter for general adult medical examination without abnormal findings Medications: Refilled amlodipine 10 mg PO DAILY 90 tabs 3RF
== END 2024-06-29 14:00 | disposition home or self-care (01) ==
LOC: HO.HMCC 11:19
PROVIDERS: PCP Internal Medicine; Visit Provider Internal Medicine
DX: I10 Essential (primary) hypertension (principal); Z00.00 Encounter for general adult medical examination without abnormal findings

== ENCOUNTER → 2024-06-29 11:18 | Outpatient (BNVA) | payer OTHER, SELFPAY | PROVIDERS: PCP Internal Medicine; Visit Provider Internal Medicine | DX: Z00.00 Encounter for general adult medical examination without abnormal findings (principal); I10 Essential (primary) hypertension; Z79.899 Other long term (current) drug therapy | CPT/HCPCS: 96127 ==

== ENCOUNTER 2024-07-11 07:40 | Outpatient (REF) | payer MEDICARE, SELFPAY ==
--- OUTSIDE RECORDS SUMMARY | 2024-07-11 07:42 | XMS_ITS | Clinical Summary ---
Author Organization [facility] Address [address] [place] [address] Phone Care Team Providers Care Compliance Analyst Name Role Phone Rhonda Ram MD Primary Care Provider [phone] Allergies Active Allergy Reactions Criticality Noted Date Comments Egg Rash Low 03/11/2024 Nikky Rash Low 03/11/2024 Other Rash Low 03/11/2024 Flour Medications multivitamin tablet Take 1 tablet by mouth 1 (one) time each day. Active Social History Tobacco Use Types Packs/Day Years Used Date Smoking Tobacco: Never Smokeless Tobacco: Never Tobacco Cessation:Counseling Given: Not Answered Alcohol Use Standard Drinks/Week Comments Never 0 (1 standard drink = 0.6 oz pur e alcohol) Interpersonal Safety Answer Date Record ed Physical Abuse 03/18/2024 Verbal Abuse 03/18/2024 Comments Unknown Sex and Gender Information Value Date Recorded Sex Assigned at Not on file Legal Sex Female 4:34 AM EST Gender Identity Not on file Sexual Orientation Not on file Obstetrics History Last Filed Vital Signs Vital Sign Reading Time Taken Comments Blood Pressure 111/75 03/18/2024 3:31 PM EST Pulse 72 03/18/2024 3:31 PM EST Temperature 36.3 ??C (97.4 ??F) 03/18/2024 2:51 PM ES T Respiratory Rate 16 03/18/2024 3:31 PM EST Oxygen Saturation 100% 03/18/2024 3:31 PM EST Inhaled Oxygen Concentration - - Weight 71.7 kg (158 lb) 03/11/2024 9:00 AM EST Height 160 cm (5' 3 ) 03/11/2024 9:00 AM EST Body Mass Index 27.99 03/11/2024 9:00 AM EST Plan of Treatment Health Maintenance Due Date Last Done Comments Breast Cancer Screening 1955 DTaP,Tdap,and Td Vaccines (1 - Tdap) 1976 Pneumococcal Vaccine: 50+ Years (1 of 1 - PCV) 07/31/2007 Zoster Vaccines (1 of 2) 07/31/2007 COVID-19 Vaccine (4 - 2023-2 5 season) 2023 04/11/2021, 08/20/2020, 2020 Influenza Vaccine (#1) 2023 Depression Screening 01/22/2024 Hepatitis C Screening 01/22/2024 Medicare Annual Wellness Visit 01/22/2024 Osteoporosis Screening (Bone Density Screening) 01/22/2024 Social Influencers of Health Screening 01/22/2024 Falls Risk Assessment 03/18/2025 03/18/2024 RSV Immunization Adult Patients (1 - 1-dose 75+ series) 2032 Colorectal Cancer Screening: Colonoscopy 03/20/2034 03/20/2024, 03/18/2024 HIB Vaccines Aged Out No longer eligi ble based on patient's age to complete this topic HPV Vaccines Aged Out No longer eligi ble based on patient's age to complete this topic Hepatitis A Vaccines Aged Out No long er eligible based on patient's age to complete this topic Hepatitis B Vaccines Aged Out No long er eligible based on patient's age to complete this topic IPV Vaccines Aged Out No longer eligi ble based on patient's age to complete this topic MMR Vaccines Aged Out No longer eligi ble based on patient's age to complete this topic Meningococcal ACWY Vaccine Aged Out N o longer eligible based on patient's age to complete this topic Meningococcal B Vacine Aged Out No lo nger eligible based on patient's age to complete this topic RSV Immunization Patients Under 20 months Aged Out No longer eligible b ased on patient's age to complete this topic Varicella Vaccines Aged Out No longer eligible based on patient's age to complete this topic Procedures Procedure Name Priority Date/Time Associated Diagnosis Comments COLONOSCOPY Routine 03/20/2024 8:43 AM EST from Last 3 Months or Most Recently Relevant to Health Maintenance Results * COLONOSCOPY (03/20/2024 8:43 AM EST) Anatomical Region Laterality Modality Endoscopy us Historical Provider GI~PROCEDURE ORDERABLES F inal Result from Last 3 Months or Most Recently Relevant to Health Maintenance Insurance [facility] Member Subscriber Plan / Payer (Ef fective 2022-Present) Name:Virginia Rodriguez Relation to Subscriber:Self Name:Virginia Rodriguez Payer ID:[id number] Group ID:[id number] Type:Not on file Address: [place] [address] [address] [address] Care Teams Compliance Analyst Relationship Specialty Start Date End Date Rhonda Ram MD [address] [place] [id number] PCP - General Internal Medicine 03/18/24
--- OUTSIDE RECORDS SUMMARY | 2024-07-11 07:43 | XMS_ITS | Patient Health Record ---
Author Organization [facility] Address [address] [facility] [address] [place] [address] Care Team Providers Care Wood Science Professor Name Role Phone Rhonda Ram MD Primary Care Provider Tyson sebastián Florencio Mabel Unavailable [phone] Allergies No Known Allergies Results Component Value Reference Range Notes [id number] Reviewed date:06/12/2024 08:36:55 AM Interpretation: Performing Lab:[facility], [address] [place] [address], Phone - [phone], Director - MDJodry Notes/Report: TSH 1.600 0.450-4.500 uIU/mL PTH, Intact-[id number] Reviewed date:06/12/2024 08:37:07 AM Interpretation: Performing Lab:[facility], [address] [place] [address], [place], Phone - [phone], Director - MDJodry Notes/Report: PTH, Intact 30 15-65 pg/mL CBC, Platelet, No Differenti al-[id number] Reviewed date:06/12/2024 08:36:47 AM Interpretation: Performing Lab:[facility], [address] [facility], Phone - [phone], Director - MDJodry Notes/Report: WBC 3.8 3.4-10.8 x10E3/uL RBC 4.44 3.77-5.28 x10E6/uL Hemoglobin 12.3 11.1-15.9 g/dL Hematocrit 38.0 34.0-46.6 % MCV 86 79-97 fL MCH 27.7 26.6-33.0 pg MCHC 32.4 31.5-35.7 g/dL RDW 14.2 11.7-15.4 % Platelets 302 150-450 x10E3/uL Vitamin D, 22-Dkcwvma-[id number] Reviewed date:06/12/2024 08:36:34 AM Interpretation: Performing Lab:[facility], [address] [facility], Phone - [phone], Director - Naren Notes/Report: Vitamin D, 25-Hydroxy 39.6 30.0-100.0 ng/mL Vitamin D deficiency has been defined by the [employer] and an Endocrine Society practice guideline as a level of serum 25-OH vitamin D less than 20 ng/mL (1,2). The Endocrine Society went on to further define vitamin D insufficiency as a level between 21 and 29 ng/mL (2). 1. IOM ([employer]). 2010. Dietary reference intakes for calcium and D. [place]: The National Academies Press. 2. Patrice MF, Telly LINDSAY, Anju KENNEDY, et al. Evaluation, treatment, and prevention of vitamin D deficiency: an Endocrine Society clinical practice guideline. JCEM. 2010; 96(7):1911-30. Comp. Metabolic Panel (14)-3 Reviewed date:06/16/2024 01:32:24 PM Interpretation: Performing Lab:[facility], [address] [facility], [place], Phone - [phone], Director - Naren Notes/Report: Glucose 87 70-99 mg/dL BUN 14 8-27 mg/dL Creatinine 0.94 0.57-1.00 mg/dL eGFR 67 >59 mL/min/1.73 BUN/Creatinine Ratio 15 12-28 Sodium 138 134-144 mmol/L Potassium 4.6 3.5-5.2 mmol/L Chloride 102 96-106 mmol/L Carbon Dioxide, Total 23 20-29 mmol/L Calcium 9.9 8.7-10.3 mg/dL Protein, Total 6.7 6.0-8.5 g/dL Albumin 4.5 3.9-4.9 g/dL Globulin, Total 2.2 1.5-4.5 g/dL Bilirubin, Total 0.4 0.0-1.2 mg/dL Alkaline Phosphatase 124 44-121 IU/L AST (SGOT) 23 0-40 IU/L ALT (SGPT) 34 0-32 IU/L PDF Report Reviewed date:06/12/2024 08:35:35 AM Interpretation: Performing Lab:[facility], [address], [place], Phone - [phone], Director - Naren Notes/Report: Reason For Referral No Information Medications Medication SIG (Take, Route, Frequency, Duration) Notes Start Date End Date Status Multi-Vitamin - 1 tablet Orally Once a day for 30 day(s) Active amLODIPine Besylate 10 MG TAKE 1 TABLET BY MOUTH DAILY Oral for 90 Days Active Calcium 1 tab Oral for 14 days Active Immunizations Vaccine Route Administration Date Status Comme nts Influenza, live, intranasal Intramuscular 07/17/2011 Pendi ng Tdap Intramuscular 07/17/2011 Pending Social History Tobacco Use: Social History Observation Description Date Details (start date - stop date) Never Smoker NA - NA AUDIT-C (Standard) Question Answer Notes Did you have a drink containing alcohol in the p ast year? No Points 0 Interpretation Negative Tobacco Control (Standard) Question Answer Notes Tobacco use: Nonsmoker Problems Problem Type SNOMED Code ICD Code Onset Dates Problem Status W/U Status Risk Notes Problem Postmenopausal atrophic vaginitis (55933242) Postmenopausal atrophic vaginitis (N95.2) Active confirmed Problem Postmenopausal bleeding (71154890) Postmenopausal bleeding (N95.0) Active confirmed Problem Age-related osteoporosis (919351465) Age-related osteoporosis without current pathological fracture (M81.0) Active confirmed Problem Mucous polyp of cervix (38739366) Polyp of cervix uteri (N84.1) Active confirmed Problem Gynecological examination normal (637211373958090) Encounter for gynecological examination (general) (routine) without abnormal findings (Z01.419) Active confirmed Problem Menopause (204035717) Menopausal and female climacteric states (N95.1) Active confirmed Problem Breast lump (63140435) Lump or mass in breast (611.72) Active confirmed Diag Problem Postmenopausal bleeding (29433159) Postmenopausal bleeding (627.1) Active confirmed Diag Problem Menopausal symptom (48445962) Symptomatic menopausal or female climacteric states (627.2) Active confirmed Diag Problem Muscle pain (46480437) Unspecified myalgia and myositis (729.1) Active confirmed Diag Problem General examination of patient (789902067) Routine general medical examination at health care facility (V70.0) Active confirmed Diag Problem Gynecological examination normal (437552151143552) Routine gynecological examination (V72.31) Active confirmed Major Problem Screening for malignant neoplasm of colon (513715302) Special screening for malignant neoplasms, colon (V76.51) Active confirmed Major Vital Signs Temperature 97.8 degrees Fahrenheit 06/11/2024 Blood pressure diastolic 84 mm Hg 06/11/2024 Height 62.75 in 06/11/2024 Blood pressure systolic 132 mm Hg 06/11/2024 Weight 150 lbs 06/11/2024 BMI 26.78 kg/m2 06/11/2024 Encounters Encounter Location Date Provider Diagnosis [place] [address] [address] 06/11/2024 Mabel Matias Encounter for gynecological examination (general) (routine) without abnormal findings Z01.419 ; Encounter for screening mammogram for malignant neoplasm of breast Z12.31 ; Age-related osteoporosis without current pathological fracture M81.0 and Dense breasts, unspecified R92.30 [place] [address] [address] 05/08/2024 Mabel Matias Other specified disorders of bone density and structure, multiple sites M85.89 [facility] [address] 05/29/2024 Mabel Matias Assessments Encounter Date Diagnosis (ICD Code) Assessment Notes Treatment Notes Treatment Clinical Notes Section Notes 05/08/2024 Other specified disorders of bone density and structure, multiple sites (ICD-10 - M85.89) 06/11/2024 Encounter for gynecological examination (general) (routine) without abnormal findings (ICD-10 - Z01.419) NO PAP TEST, DUE IN 2026. 06/11/2024 Encounter for screening mammogram for malignant neoplasm of breast (ICD-10 - Z12.31) REGULAR MAMMOGRAMS AND SBE'S WERE RECOMMENDED. 06/11/2024 Age-related osteoporosis without current pathological fracture (ICD-10 - M81.0) DISCUSSED HER LAST BMD AND OSTEOPOROSIS AND ITS IMPACT ON HER HEALTH. ADEQUATE CALCIUM AND VIT D. WEIGHT BEARING EXERCISES. OSTEO PRECAUTIONS. OSTEO WORK UP WAS ORDERED. RTO TO DISCUSSE RESULTS AND TX OPTIONS. 06/11/2024 Dense breasts, unspecified (ICD-10 - R92.30) DISCUSSED DENSE BREASTS ON MAMMOGRAM AND ITS IMPLICATIONS. 3D MAMMOGRAMS WERE RECOMMENDED. Plan Of Treatment Pending Test Test Name Order Date MAMMOGRAM, SCREENING 09/28/2014 MAMMOGRAM, SCREENING 12/16/2018 MAMMOGRAM, SCREENING 01/25/2020 MAMMOGRAM, SCREENING 01/25/2021 MAMMOGRAM, SCREENING 01/29/2022 MAMMOGRAM, SCREENING 06/10/2023 MAMMOGRAM, SCREENING 06/11/2024 Urinalysis 06/10/2023 Urinalysis 06/17/2017 Urinalysis 12/16/2018 BONE DENSITY 01/29/2022 BONE DENSITY 06/10/2023 MM Digital Mammo Screening 06/11/2024 MM Digital Mammo Screening 06/10/2023 MM Digital Mammo Screening 01/29/2022 MM Digital Mammo Screening 12/16/2018 MM Digital Mammo Screening 01/25/2021 MM Digital Mammo Screening 01/25/2020 [id number] 05/08/2024 CBC With Differential/Platelet-[id number] PTH, Intact-594268 05/08/2024 Vitamin D, 27-Yftvwhg-[id number] 05/08/2024 Comp. Metabolic Panel ([id number] 2024 Next Appt Details Provider Name:Mabel Delatorre beckycatrachitoclemente, 07/22/2024 09:10:00 AM, [address] [facility] [address], [place], [address], Provider Name:Mabel Delatorre beckycatrachitoclemente, 06/21/2025 09:00:00 AM, [address], [facility] [address], [place], [address], Insurance Providers Payer Name Payer Address Payer Phone Subscriber Number Group Number Insured Name Patient Relationship to Insured Coverage Start Date Coverage End Date [employer] [facility] [address] [place] [address] [phone] [id number] CATIE FERGUSON Self - patient is the insured Medical (General) History Medical History History ICD Code Myalgia M79.1 Postmenopausal bleeding N95.0 Unspecified lump in breast N63 Menopausal and female climacteric states N95.1 Hormone replacement therapy (postmenopau mali) Z79.890 Inconclusive mammogram R92.2 Disorder of bone density and structure, unspecified M85.9 Postmenopausal atrophic vaginitis N95.2 Mammographic heterogeneous density, bila teral breasts R92.333 Age-related osteoporosis without current pathological fracture M81.0 Dense breasts, unspecified R92.30 Other specified disorders of bone densit y and structure, multiple sites M85.89 Polyp of cervix uteri N84.1 Surgical History Surgery Date(Month/Year) Bilateral Tubal Ligation Colonoscopy Hospitalization History Reason Date(Month/Year) 2 Days for Diverticulitis 2018 See Surgical Hx 2 Vaginal Deliveries
--- OUTSIDE RECORDS SUMMARY | 2024-07-11 07:43 | XMS_ITS ---
Author Organization [facility] Address [address] [facility] [address] [place] [address] Care Team Providers Care Crib Pad Maker Name Role Phone Rhonda Ram MD Primary Care Provider Mabel Elizondo Unavailable [phone] Allergies No Known Allergies Results Component Value Reference Range Notes [id number] Reviewed date:06/12/2024 08:36:55 AM Interpretation: Performing Lab:[facility] [place], [address] [place] [address], Phone - [phone], Director - MDJodry Notes/Report: TSH 1.600 0.450-4.500 uIU/mL PTH, Intact-[id number] Reviewed date:06/12/2024 08:37:07 AM Interpretation: Performing Lab:[facility] [place], [address] [facility], Phone - [phone], Director - MDJodry Notes/Report: PTH, Intact 30 15-65 pg/mL CBC, Platelet, No Differenti al-[id number] Reviewed date:06/12/2024 08:36:47 AM Interpretation: Performing Lab:[facility] [place], [address] [facility], Phone - [phone], Director - MDJodry Notes/Report: WBC 3.8 3.4-10.8 x10E3/uL RBC 4.44 3.77-5.28 x10E6/uL Hemoglobin 12.3 11.1-15.9 g/dL Hematocrit 38.0 34.0-46.6 % MCV 86 79-97 fL MCH 27.7 26.6-33.0 pg MCHC 32.4 31.5-35.7 g/dL RDW 14.2 11.7-15.4 % Platelets 302 150-450 x10E3/uL Vitamin D, 56-Syogmba-[id number] Reviewed date:06/12/2024 08:36:34 AM Interpretation: Performing Lab:[facility] [place], [address] [facility], [place], Phone - [phone], Director - Naren Notes/Report: Vitamin D, 25-Hydroxy 39.6 30.0-100.0 ng/mL Vitamin D deficiency has been defined by the Wright of Medicine and an Endocrine Society practice guideline as a level of serum 25-OH vitamin D less than 20 ng/mL (1,2). The Endocrine Society went on to further define vitamin D insufficiency as a level between 21 and 29 ng/mL (2). 1. IOM (Wright of Medicine). 2010. Dietary reference intakes for calcium and D. [place]: The National Academies Press. 2. Patrice MF, Telly LINDSAY, Anju KENNEDY, et al. Evaluation, treatment, and prevention of vitamin D deficiency: an Endocrine Society clinical practice guideline. JCEM. 2010; 96(7):1911-30. Comp. 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 CELLARS SUPERVISOR Physical 60-85+ Medications Medication SIG (Take, Route, Frequency, Duration) Notes Start Date End Date Status Multi-Vitamin - 1 tablet Orally Once a day for 30 day(s) Active amLODIPine Besylate 10 MG TAKE 1 TABLET BY MOUTH DAILY Oral for 90 Days Active Calcium 1 tab Oral for 14 days Active Social History Tobacco Use: Social History Observation [...] Problem Status W/U Status Risk Notes Problem Mucous polyp of cervix (50696236) Polyp of cervix uteri (N84.1) Active confirmed Problem Age-related osteoporosis (368434482) Age-related osteoporosis without current pathological fracture (M81.0) Active confirmed Vital Signs Height 62.75 in 06/11/2024 Weight 150 lbs 06/11/2024 BMI 26.78 kg/m2 06/11/2024 Blood pressure systolic 132 mm Hg 06/12/19 25 Blood pressure diastolic 84 mm Hg 025 Temperature 97.8 degrees Fahrenheit 06/12/19 25 Encounters Encounter Location Date Provider Diagnosis [address] [address] 06/11/2024 Mabel Matias Encounter for gynecological examination (general) (routine) without abnormal findings Z01.419 ; Encounter for screening mammogram for malignant neoplasm of breast Z12.31 ; Age-related osteoporosis without current pathological fracture M81.0 and Dense breasts, unspecified R92.30 Assessments Encounter Date Diagnosis (ICD Code) Assessment Notes Treatment Notes Treatment Clinical Notes Section Notes 06/11/2024 Encounter for gynecological examination (general) (routine) [...] 3D MAMMOGRAMS WERE RECOMMENDED. Plan Of Treatment Treatment Notes Assessment Notes Encounter for gynecological examination (general) (routine) without abnormal findings NO PAP TEST, DUE IN 2026. Encounter for screening mamm ogram for malignant neoplasm of breast REGULAR MAMMOGRAMS AND SBE'S WERE RECOMMENDED. Age-related osteoporosis wit hout current pathological fracture DISCUSSED HER LAST BMD AND OSTEOPOROSIS AND ITS IMPACT ON HER HEALTH. ADEQUATE CALCIUM AND VIT D. WEIGHT BEARING EXERCISES. OSTEO PRECAUTIONS. OSTEO WORK UP WAS ORDERED. RTO TO DISCUSSE RESULTS AND TX OPTIONS. Dense breasts, unspecified DISCUSSED DENSE BREASTS ON MAMMOGRAM AND ITS IMPLICATIONS. 3D MAMMOGRAMS WERE RECOMMENDED. Pending Test Test Name Order Date MAMMOGRAM, SCREENING 06/11/2024 MM Digital Mammo Screening 06/11/2024 Next Appt Details Follow Up: 1 Year, Reason: Provider Name:Mabel riggs, 07/22/2024 09:10:00 AM, [employer], [facility] [address], [place], [address], Provider Name:Mabel riggs, 06/21/2025 09:00:00 AM, [employer], [address], [place], [address], Progress Notes * JANNETH FERGUSONB:1955 ([age] yo F)Acc No.[id number]:06/11/2024 PROGRESS NOTES Patient:?JOSE FERGUSONA Appointment Provider:?Mabel riggs M.D. :1955???Age:68 Y???Sex:Female D ate:06/11/2024 Address:[address] [place] [address], , [id number] Pcp:Rhonda Ram MD Subjective: * Chief Complaints: * ???Annual CELLARS SUPERVISOR PhysicalAnnual CELLARS SUPERVISOR Physical 60-85+ * HPI: ???New/Follow-up Patient Consult:? PAT ENTERED MENOPAUSE AT AGE 54.? SHE WAS ON HRT FROM 2015 UNTIL 2019.? SHE USES LUBRICANTS FOR DYSPAREUNIA AND REFUSES INTRAVAGINAL ESTROGEN. SHE UNDERWENT HYSTEROSCOPY, POLYPECTOMY AND D&C IN 2015 WITH BENIGN FINDINGS. HER LAST MAMMOGRAM DONE IN APR 2024 SHOWED DENSE BREASTS AND WAS NORMAL.? HER LIFETIME BREAST CA RISK IS 5.6%.?? HER LAST PAP TEST IN 2023 WAS NEGATIVE AND HPV NEGATIVE. HER LAST BMD IN 2024 SHOWED OSTEOPOROSIS WITH T-SCORE OF -2.8 AT THE [facility].? OSTEO WORK UP WAS RECOMMENDED BUT DEAYNIRA HAS NOT HAD HER BLOOD WORK DONE.? WE WILL REORDER AND SET AN APPT FOR DISCUSSION. SHE HAD COLONOSCOPIES DONE IN 2018 AND 2024. ???Annual:? Patient presents for annual exam, ages 60-85, postmenopausal. ?General Health Maintenance:?Current breast complaints:?no breast pain, mass, discharge, or skin changes ?Urinary problems:?patient reports no urinary health problems or bowel health problems ?Calcium intake:?takes adequate calcium via diet and supplementation ?Significant CELLARS SUPERVISOR problems:?no significant production trainer symptoms or problems * ROS:?general:?no?chest pain.?no?palpitations.?no?headache.?no?cough.?no?shortness of breath.?no?fever.?no?unexplained weight loss.?no?nausea/vomiting.?no?change in bowel movements.?no blood in stool.?no?genitourinary complaints.?no?skin complaints.? * Medical History:? * Site Engineer History:?/ Para?2/2.?Sexual activity?currently sexually active.?Last Pap Smear:?01/25/20 NIL, NEG HPV, 06/01/2016 , neg, NEG HRHPV.?Mammogram:?04/18/24 50-75% density, 04/09/23 50-75% density, 05/10/21 < 50% density, 08/19/18 < 50% density, 07/16/2017 < 50% density, 06/15/2016 normal, 03/29/15 50- 75% density, 12/2013 50-75% density, not due per age.?LMP and menses?2010 Katharina.? Control:?bilateral tubal ligation.?Menopause: ?Began at age: ?54 ???Colonoscopy?2005.?Bone Density:?05/01/24, 02/01/20, 05/2017 with PCP.?CELLARS SUPERVISOR HISTORY MISC.?04/06/15 Dense Breast Letter 1 Mailed to Patient.? * OB History:?Total pregnancies?2.?Total living children?2.?NVD?2.? * Surgical History:?Bilateral Tubal Ligation Colonoscopy * Hospitalization/Major Diagno stic Procedure:?2 Vaginal Deliveries See Surgical Hx 2 Days for Diverticulitis 2018 * Family History:?Mother: dece ased, ovarian cancer.?Father: , well, Prostate Cancer.? * Social History:?Tobacco Use:?Tobacco Control (Standard)?Tobacco use:?Nonsmoker ???Sexual History:?Sexual History?Had sex in the past 12 months (vaginal, oral, or anal)?: Yes, with: Men only.?Details of Sexual History?Are you sexually active??Yes ???Drugs/Alcohol:?Drugs?Have you used drugs other than those for medical reasons in the past 12 months??No ???Miscellaneous:?Children: yes, 2. ?Domestic violence: no. ?Exercise: yes. ?Home smoke detector use: yes. ?Living with: spouse. ?Marital status: . ?Natural support system: yes. 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 ?Sexual abuse: no. ?Sexually active: yes, monogamous relationship. ?Verbal abuse: no. ???Drug/Alcohol:?AUDIT-C (Standard)?Did you have a drink containing alcohol in the past year??No ?Points?0 ?Interpretation?Negative * Medications:?TakingCalcium 1 tab Oral Multi-Vitamin - Tablet 1 tablet Orally Once a day amLODIPine Besylate 10 MG Tablet TAKE 1 TABLET BY MOUTH DAILY Oral Medication List reviewed and reconciled with the patientTaking Calcium 1 tab Oral Taking Multi-Vitamin - Tablet 1 tablet Orally Once a day Taking amLODIPine Besylate 10 MG Tablet TAKE 1 TABLET BY MOUTH DAILY Oral Medication List reviewed and reconciled with the patient * Allergies:?N.K.D.A.no[Allerg ies Verified] Objective: * Vitals:?Ht: 62.75 in, Wt: 15 0 lbs, BMI:26.78Index, BP: 132/84 mm Hg, Temp: 97.8 F. * Examination: ???General Exam: ?CONSTITUTIONAL:?General Appearance:?alert, in no acute distress, normal, well nourished ?NECK/THYROID:?Inspection/Palpation:?normal ?Thyroid:?normal size and shape ?RESPIRATORY:?Auscultation: clear to auscultation bilaterally, Respiratory Effort: normal.?CARDIOVASCULAR:?Auscultation: regular rate and rhythm.?BREAST, Right:?Inspection/Palpation:?no discharge, no masses present, no nipple retraction, no skin changes, no skin dimpling, no tenderness, no lymphadenopathy, no axillary mass, no axillary tenderness ?BREAST, Left:?Inspection/Palpation:?no discharge, no masses present, no nipple retraction, no skin changes, no skin dimpling, no tenderness, no lymphadenopathy, no axillary mass, no axillary tenderness ?GASTROINTESTINAL:?Abdomen:?no masses, nontender, nondistended ?Liver and Spleen:?normal ?Hernias:?no hernias present, no inguinal adenopathy ?MUSCULOSKELETAL:?Inspection/Palpation:?no clubbing, cyanosis, or edema ?SKIN:?Skin:?normal ?NEURO/PSYCH:?Orientation:?time , place, person ?Mood/Affect:?normal?Genitourinary: ?EXTERNAL GENITALIA:?External Genitalia:?normal, no lesions ?VAGINA:?Vagina:?normal appearance, no abnormal discharge, no lesions ?BLADDER:?Bladder:?no mass, nontender ?URETHRA:?Urethra:?no erythema or lesions present ?CERVIX:?Cervix:?no lesions, nontender ?UTERUS:?Uterus:?nontender, normal contour, normal mobility, normal size ?ADNEXA:?Adnexa:?no masses, no tenderness ?ANUS AND PERINEUM:?Anus/Perineum:?visually normal??? Assessment: * Assessment: 1.?Encounter for gynecologic al examination (general) (routine) without abnormal findings - Z01.419???2.?Encounter for screening mammogram for malignant neoplasm of breast - Z12.31???3.?Age-related osteoporosis without current pathological fracture - M81.0???4.?Dense breasts, unspecified - R92.30??? Plan: * Treatment: 2.?Encounter for screening m ammogram for malignant neoplasm of breast?Imaging: MM Digital Mammo Screening Notes: REGULAR MAMMOGRAMS AND SBE'S WERE RECOMMENDED.?? 3.?Age-related osteoporosis without current pathological fracture?LAB: [id number] ?LAB: PTH, Intact-[id number] ?LAB: CBC, Platelet, No Differential-[id number] ?LAB: Vitamin D, 23-Biirvlw-[id number] ?LAB: Comp. Metabolic Panel [id number] Notes: DISCUSSED HER LAST BMD AND OSTEOPOROSIS AND ITS IMPACT ON HER HEALTH. ADEQUATE CALCIUM AND VIT D. WEIGHT BEARING EXERCISES. OSTEO PRECAUTIONS. OSTEO WORK UP WAS ORDERED. RTO TO DISCUSSE RESULTS AND TX OPTIONS.?? 4.?Dense breasts, unspecifie d? Notes: DISCUSSED DENSE BREASTS ON MAMMOGRAM AND ITS IMPLICATIONS. 3D MAMMOGRAMS WERE RECOMMENDED.?? * Imaging:? * ?Imaging: MAMMOGRAM, SCR EENING * Procedure Codes:? * Preventive Medicine:? ??YOUR PREVENTIVE WELLNESS PLAN:?Osteoporosis prevention?Calcium, D, strength training.?Breast Cancer Screening (Mammogram):?annually.?Cervical Cancer Screening (Pap Smear):?q 3 years with HPV screen.?Colorectal Cancer Screening:?q 10 years.? * Follow Up:?1 Year * Images: Billing Information: * Visit Code:? [id number] Preventive Care Est Pt. Age 65 and over. * Procedure Codes:? * Sign off status: Completed true * Appointment Provider:?Mabel Matias M.D. Date:?06/11/2024 Generated for Sandra zacarias/Matthew/eTransmitting on:?07/11/2024 07:42 AM EDT History and Physical Notes * HPI (History of Present Illness) Category Sub-Category Detail Notes Category Not es New/Follow-up Patient Consult PAT ENTERED MENOPAUSE AT AGE 54. SHE WAS ON HRT FROM 2014 UNTIL 2018. SHE USES LUBRICANTS FOR DYSPAREUNIA AND REFUSES INTRAVAGINAL ESTROGEN. SHE UNDERWENT HYSTEROSCOPY, POLYPECTOMY AND D&C IN 2015 WITH BENIGN FINDINGS. HER LAST MAMMOGRAM DONE IN APR 2024 SHOWED DENSE BREASTS AND WAS NORMAL. HER LIFETIME BREAST CA RISK IS 5.6%. HER LAST PAP TEST IN 2023 WAS NEGATIVE AND HPV NEGATIVE. HER LAST BMD IN 2024 SHOWED OSTEOPOROSIS WITH T-SCORE OF -2.8 AT THE [facility]. OSTEO WORK UP WAS RECOMMENDED BUT DEYANIRA HAS NOT HAD HER BLOOD WORK DONE. WE WILL REORDER AND SET AN APPT FOR DISCUSSION. SHE HAD COLONOSCOPIES DONE IN 2018 AND 2024. Annual General Health Maintenance: Current breast complaints:: no breast pain, mass, discharge, or skin changes Urinary problems:: patient r eports no urinary health problems or bowel health problems Calcium intake:: takes adequ ate calcium via diet and supplementation Significant CELLARS SUPERVISOR problems:: n o significant production trainer symptoms or problems Examination Category Sub-Category Detail Notes Category Not es General Exam CONSTITUTIONAL: General Appearan ce:: alert, in no acute distress, normal, well nourished NECK/THYROID: Inspection/Palpation:: normal Thyroid:: normal size and shape RESPIRATORY: Auscultation: clear to auscultation bilaterally, Respiratory Effort: normal CARDIOVASCULAR: Auscultation: regula r rate and rhythm GASTROINTESTINAL: Abdomen:: no masses, nontender , nondistended Liver and Spleen:: normal Hernias:: no hernias present, no inguina l adenopathy MUSCULOSKELETAL: Inspection/Palpation:: no clubb ing, cyanosis, or edema SKIN: Skin:: normal NEURO/PSYCH: Orientation:: time , place, pers on Mood/Affect:: normal BREAST, Right: Inspection/Palpation :: no discharge, no masses present, no nipple retraction, no skin changes, no skin dimpling, no tenderness, no lymphadenopathy, no axillary mass, no axillary tenderness BREAST, Left: Inspection/Palpation :: no discharge, no masses present, no nipple retraction, no skin changes, no skin dimpling, no tenderness, no lymphadenopathy, no axillary mass, no axillary tenderness Genitourinary EXTERNAL GENITALIA: External Genitalia:: nor mal, no lesions VAGINA: Vagina:: normal appearance, no a bnormal discharge, no lesions BLADDER: Bladder:: no mass, nontender URETHRA: Urethra:: no erythema or lesions present CERVIX: Cervix:: no lesions, nontender UTERUS: Uterus:: nontender, normal conto ur, normal mobility, normal size ADNEXA: Adnexa:: no masses, no tendernes s ANUS AND PERINEUM: Anus/Perineum:: visually norm al
--- OUTSIDE RECORDS SUMMARY | 2024-07-11 07:43 | XMS_ITS | Data Portability ---
Author Organization [facility], Main Office Address [address] [place] [address] Care Team Providers Care Cleaning Professional Name Role Phone TABITHA COTTO Exchange Engineer MELY KENDRICK Primary Care Provider [phone] JULIANA MORGAN Research Microbiologist JANNIE REEVES Exchange Engineer DEBBIE TARANGO Banking Representative Assessment No assessment recorded. Plan of Treatment Reminders Order Date Submit Date Provider Last Modified By Organization Details Last Modified Time Details Appointments None record ed. Lab CBC w/ auto diff 2022 023 [email or web address] [facility], [address] [place] , [place], [address], 3 09:34:25 CMP, serum or plasma 2022 023 [email or web address] [facility], [address], [place], [address], 3 09:34:25 urinal ysis, comple te 2022 023 ALEXANDER [facility], [address] [place], [address], 3 13:40:28 lipid panel, serum 2022 023 ALEXANDER [facility], [address], [place], [address], 3 19:05:25 CMP, serum or plasma 2022 023 ALEXANDER [facility], [address], [place], [address], 3 19:05:23 vitami n D, 25-hyd lena, total, serum 2022 023 ALEXANDER [facility], [address], [place], [address], 3 19:05:26 BMP, serum or plasma 2021 022 ALEXANDER [facility], [address], [place], [address], 2 01:15:22 CBC w/ auto diff 2021 022 ALEXANDER [facility], [address], [place], [address], 2 20:29:56 Referral gastro entero logist referr al - repat colono matt. acute divert iculit is treate d. 2021 022 [email or web address] [facility], [address], [place], [address], 3 12:47:52 Procedures None record ed. Surgeries None record ed. Imaging XR, chest, 2 view - cough , rales ad wheezi ng, rule out pneumo taryn 2022 023 ALEXANDER Not available 15:43:16 CT, abdome n + pelvis , w/ contra st - acute divert iculit is. R/o absces s. 2021 022 [email or web address] [facility] ([facility] [address], [place], [address], 2 11:59:48 Medication Orders amoxic illin 875 mg tablet 2022 023 [email or web address] [facility] #[id number], [address], [place], [id number], 3 10:51:18 ProAir HFA 90 mcg/ac tuatio n aeroso l inhale r 2022 023 [facility] #[id number], [address] [place] [address], [id number], 3 13:40:22 predni sone 20 mg tablet 2022 023 [facility] #[id number], [address] [place] [address], [id number], 3 16:51:04 metron idazol e 500 mg tablet [address] [facility] #25369, [address] [place] [address], [id number], 3 15:23:59 levofl oxacin 750 mg tablet [address] [facility] #82057, [address] [place] [address], [id number], 3 15:23:51 amlodi pine 5 mg tablet 2021 022 candy [facility] #30192, [address] [place] [address], [id number], 3 13:10:29 Patient TargetsNo targets recorded. Patient Instructions Encounter Date Encounter Id Patient Instructions Last Modified By Organization Details Last Modified Time 05/16/2021 [id number] high blood pressure: care instructions Not available 05/16/2021 09:18:40 dash diet: care instructions Not available 05/16/2021 09:18:40 03/20/2022 [id number] diverticulitis: care instructions Not available 03/20/2022 15:28:16 diverticulosis diet Not availa ble 03/20/2022 15:28:16 At today's [facility] follow up visit, all current and discharge medications (OTC, herbal therapies, supplements) reviewed and reconciled with patient and or caregiver, including potential side effects, drug interactions, instructions, and the consequences of not taking medication. Reviewed potential barriers to medication adherence, such as side effects from medication or cost of medication. [email or web address] Not available 03/20/2022 14:51:31 05/22/2022 [id number] gastroesophageal reflux disease (GERD): care instructions Not available 05/22/2022 15:33:45 dash diet: care instructions Not available 05/22/2022 15:33:38 When You Want to Lose Weight: Care Instructions Not available 05/22/2022 15:31:02 high cholesterol : care instructions Not available 05/22/2022 15:33:56 Reason for Referral Exchange Engineer Referral for Diverticulitis of colon repat colonoscopy. acute diverticulitis treated. Referring Physician: Mely Kendrick, Internal Medicine, Encounter Date: 03/20/2022 Results Created Date Observation Date Name Description Value Unit Range Abnormal Flag Note LastModifiedBy Organization Detail LastModifiedTime 05/09/1905/09/2021 COMPL ETE CBC WITH DIFF WBC 3.6 K/mm3 (4.0-1 1.0) low Not Available [facility] (Centralized Electronic Ordering - All Locations) Patient Can Go To The Location Of Their Choice, [id number] 05/09/2021 15:24:44 05/09/1905/09/2021 COMPL ETE CBC WITH DIFF RBC 4.41 M/mm3 (4.20- 5.40) Not Available [facility] (Centralized Electronic Ordering - All Locations) Patient Can Go To The Location Of Their Choice, [id number] 05/09/2021 15:24:44 05/09/192022 COMPL ETE CBC WITH DIFF HGB 11.9 gm/dL (11.7- 15.5) Not Available [facility] (Centralized Electronic Ordering - All Locations) Patient Can Go To The Location Of Their Choice, 05/09/2021 15:24:44 05/09/1905/09/2021 COMPL ETE CBC WITH DIFF HCT 38.5 % (35.7- 45.8) Not Available [facility] (Centralized Electronic Ordering - All Locations) Patient Can Go To The Location Of Their Choice, 05/09/2021 15:24:44 05/09/1905/09/2021 COMPL ETE CBC WITH DIFF MCV 87.3 fL (80.0- 100.0) Not Available [facility] (Centralized Electronic Ordering - All Locations) Patient Can Go To The Location Of Their Choice, 05/09/2021 15:24:44 05/09/1905/09/2021 COMPL ETE CBC WITH DIFF MCH 27.0 pg (27.0- 34.0) Not Available [facility] (Centralized Electronic Ordering - All Locations) Patient Can Go To The Location Of Their Choice, 05/09/2021 15:24:44 05/09/1905/09/2021 COMPL ETE CBC WITH DIFF MCHC 30.9 g/dL (33.0- 37.0) low Not Available [facility] (Centralized Electronic Ordering - All Locations) Patient Can Go To The Location Of Their Choice, 05/09/2021 15:24:44 05/09/1905/09/2021 COMPL ETE CBC WITH DIFF plt 292 K/mm3 (150-4 60) Not Available [facility] (Centralized Electronic Ordering - All Locations) Patient Can Go To The Location Of Their Choice, 05/09/2021 15:24:44 05/09/1905/09/2021 COMPL ETE CBC WITH DIFF RDW-SD 47.3 fL (<47.0 ) high Not Available [facility] (Centralized Electronic Ordering - All Locations) Patient Can Go To The Location Of Their Choice, 05/09/2021 15:24:44 05/09/1905/09/2021 COMPL ETE CBC WITH DIFF MPV 10.4 fL (9.4-1 2.4) Not Available [facility] (Centralized Electronic Ordering - All Locations) Patient Can Go To The Location Of Their Choice, 05/09/2021 15:24:44 05/09/1905/09/2021 COMPL ETE CBC WITH DIFF automated NRBC 0.0 #/100 _WBC' s Not Available [facility] (Centralized Electronic Ordering - All Locations) Patient Can Go To The Location Of Their Choice, 05/09/2021 15:24:44 05/09/19 22 05/09/2021 COMPL ETE CBC WITH DIFF abs. NRBC 0.0 K/mm3 Not Available [facility] (Centralized Electronic Ordering - All Locations) Patient Can Go To The Location Of Their Choice, 05/09/2021 15:24:44 05/09/1905/09/2021 COMPL ETE CBC WITH DIFF neut # 1.2 K/mm3 (1.3-7 .0) low Not Available [facility] (Centralized Electronic Ordering - All Locations) Patient Can Go To The Location Of Their Choice, 05/09/2021 15:24:44 05/09/1905/09/2021 COMPL ETE CBC WITH DIFF lymph # 1.9 K/mm3 (0.8-3 .1) Not Available [facility] (Centralized Electronic Ordering - All Locations) Patient Can Go To The Location Of Their Choice, 05/09/2021 15:24:44 05/09/1905/09/2021 COMPL ETE CBC WITH DIFF mono# 0.3 K/mm3 (0.4-0 .9) low Not Available [facility] (Centralized Electronic Ordering - All Locations) Patient Can Go To The Location Of Their Choice, 05/09/2021 15:24:44 05/09/1905/09/2021 COMPL ETE CBC WITH DIFF eo # 0.1 K/mm3 (0.0-0 .4) Not Available [facility] (Centralized Electronic Ordering - All Locations) Patient Can Go To The Location Of Their Choice, 05/09/2021 15:24:44 05/09/19 22 05/09/2021 COMPL ETE CBC WITH DIFF baso # 0.0 K/mm3 (0.0-0 .1) Not Available [facility] (Centralized Electronic Ordering - All Locations) Patient Can Go To The Location Of Their Choice, 05/09/2021 15:24:44 05/09/1905/09/2021 COMPL ETE CBC WITH DIFF abs. imm gran 0.0 K/mm3 Not Available [facility] (Centralized Electronic Ordering - All Locations) Patient Can Go To The Location Of Their Choice, 05/09/2021 15:24:44 05/09/1905/09/2021 COMPL ETE CBC WITH DIFF neut 34.3 % (44-76 ) low Not Available [facility] (Centralized Electronic Ordering - All Locations) Patient Can Go To The Location Of Their Choice, 05/09/2021 15:24:44 05/09/1905/09/2021 COMPL ETE CBC WITH DIFF lymph 53.5 % (15-43 ) high Not Available [facility] (Centralized Electronic Ordering - All Locations) Patient Can Go To The Location Of Their Choice, 05/09/2021 15:24:44 05/09/1905/09/2021 COMPL ETE CBC WITH DIFF monocyte 8.2 % (4.5-1 0.5) Not Available [facility] (Centralized Electronic Ordering - All Locations) Patient Can Go To The Location Of Their Choice, 05/09/2021 15:24:44 05/09/1905/09/2021 COMPL ETE CBC WITH DIFF eo 3.4 % (0-6) Not Available [facility] (Centralized Electronic Ordering - All Locations) Patient Can Go To The Location Of Their Choice, 05/09/2021 15:24:44 05/09/1905/09/2021 COMPL ETE CBC WITH DIFF baso 0.6 % (0-2) Not Available [facility] (Centralized Electronic Ordering - All Locations) Patient Can Go To The Location Of Their Choice, 05/09/2021 15:24:44 05/09/1905/09/2021 COMPL ETE CBC WITH DIFF imm gran 0.0 % Not Available [facility] (Centralized Electronic Ordering - All Locations) Patient Can Go To The Location Of Their Choice, 05/09/2021 15:24:44 05/09/1905/09/2021 COMPR EHENS LILLIAN METAB OLIC PANL glucose 98 mg/dL (70-99 ) Not Available [facility] (Centralized Electronic Ordering - All Locations) Patient Can Go To The Location Of Their Choice, 05/09/2021 16:11:58 05/09/1905/09/2021 COMPR EHENS LILLIAN METAB OLIC PANL BUN 9 mg/dL (8-23) Not Available [facility] (Centralized Electronic Ordering - All Locations) Patient Can Go To The Location Of Their Choice, 05/09/2021 16:11:58 05/09/1905/09/2021 COMPR EHENS LILLIAN METAB OLIC PANL creatinine 0.8 mg/dL (0.5-1 .0) Not Available [facility] (Centralized Electronic Ordering - All Locations) Patient Can Go To The Location Of Their Choice, 05/09/2021 16:11:58 05/09/1905/09/2021 COMPR EHENS LILLIAN METAB OLIC PANL sodium 139 mmol/ L (133-1 45) Not Available [facility] (Centralized Electronic Ordering - All Locations) Patient Can Go To The Location Of Their Choice, 05/09/2021 16:11:58 05/09/1905/09/2021 COMPR EHENS LILLIAN METAB OLIC PANL potassium 4.7 mmol/ L (3.6-5 .2) Not Available [facility] (Centralized Electronic Ordering - All Locations) Patient Can Go To The Location Of Their Choice, 05/09/2021 16:11:58 05/09/1905/09/2021 COMPR EHENS LILLIAN METAB OLIC PANL chloride 104 mmol/ L (98-10 7) Not Available [facility] (Centralized Electronic Ordering - All Locations) Patient Can Go To The Location Of Their Choice, 05/09/2021 16:11:58 05/09/1905/09/2021 COMPR EHENS LILLIAN METAB OLIC PANL bicarbonate 25 mmol/ L (22-29 ) Not Available [facility] (Centralized Electronic Ordering - All Locations) Patient Can Go To The Location Of Their Choice, 05/09/2021 16:11:58 05/09/1905/09/2021 COMPR EHENS LILLIAN METAB OLIC PANL anion gap 10 (4-17) Not Available [facility] (Centralized Electronic Ordering - All Locations) Patient Can Go To The Location Of Their Choice, 05/09/2021 16:11:58 05/09/1905/09/2021 COMPR EHENS LILLIAN METAB OLIC PANL albumin 4.7 gm/dL (3.4-4 .8) Not Available [facility] (Centralized Electronic Ordering - All Locations) Patient Can Go To The Location Of Their Choice, 05/09/2021 16:11:58 05/09/19 22 05/09/2021 COMPR EHENS LILLIAN METAB OLIC PANL calcium 9.6 mg/dL (8.6-1 0.5) Not Available [facility] (Centralized Electronic Ordering - All Locations) Patient Can Go To The Location Of Their Choice, 05/09/2021 16:11:58 05/09/19 22 05/09/2021 COMPR EHENS LILLIAN METAB OLIC PANL bilirubin,to blaine 0.3 mg/dL (0-1.2 ) Not Available [facility] (Centralized Electronic Ordering - All Locations) Patient Can Go To The Location Of Their Choice, 05/09/2021 16:11:58 05/09/1905/09/2021 COMPR EHENS LILLIAN METAB OLIC PANL total protein 7.0 gm/dL (6.2-8 .2) Not Available [facility] (Centralized Electronic Ordering - All Locations) Patient Can Go To The Location Of Their Choice, 05/09/2021 16:11:58 05/09/1905/09/2021 COMPR EHENS LILLIAN METAB OLIC PANL Ag ratio 2.0 Not Available [facility] (Centralized Electronic Ordering - All Locations) Patient Can Go To The Location Of Their Choice, 05/09/2021 16:11:58 05/09/1905/09/2021 COMPR EHENS LILLIAN METAB OLIC PANL AST 25 U/L (0-32) Not Available [facility] (Centralized Electronic Ordering - All Locations) Patient Can Go To The Location Of Their Choice, 05/09/2021 16:11:58 05/09/1905/09/2021 COMPR EHENS LILLIAN METAB OLIC PANL alk phos 108 U/L (35-10 4) high Not Available [facility] (Centralized Electronic Ordering - All Locations) Patient Can Go To The Location Of Their Choice, 05/09/2021 16:11:58 05/09/19 22 05/09/2021 COMPR EHENS LILLIAN METAB OLIC PANL ALT 33 U/L (0-33) Not Available [facility] (Centralized Electronic Ordering - All Locations) Patient Can Go To The Location Of Their Choice, 05/09/2021 16:11:58 05/09/19 22 05/09/2021 COMPR EHENS LILLIAN METAB OLIC PANL estimated GFR creatinine 76 mL/mi n/1.7 3_M2 Creat inine based estim ated glome rular filtr ation rate (eGFR ) is calcu lated using the Chron ic Kidne y Disea se Epide miolo gy Colla borat ion (CKD- EPI). The CKD-E PI calcu latio n is not valid ated in child lorraine (<18 years ), pregn ant woman or in racia l or ethni c subgr oups. Not Available [facility] (Centralized Electronic Ordering - All Locations) Patient Can Go To The Location Of Their Choice, 05/09/2021 16:11:58 05/09/1905/09/2021 LIPID PANEL cholesterol, total 212 mg/dL (<200) high Not Available [facility] ([facility] Ordering - All Locations) Patient Can Go To The Location Of Their Choice, 05/09/2021 16:12:01 05/09/1905/09/2021 LIPID PANEL triglyceride 149 mg/dL (<150) Not Available [facility] ([facility] Order[facility] - All Locations) Patient Can Go To The Location Of Their Choice, 05/09/2021 16:12:01 05/09/1905/09/2021 LIPID PANEL HDL chol 54 mg/dL (>39) Not Available [facility] (Centralized Electronic Ordering - All Locations) Patient Can Go To The Location Of Their Choice, 05/09/2021 16:12:01 05/09/19 22 05/09/2021 LIPID PANEL LDL cholesterol, calculated 128 mg/dL (0-130 ) Not Available [facility] (Centralized Electronic Ordering - All Locations) Patient Can Go To The Location Of Their Choice, 05/09/2021 16:12:01 05/09/1905/09/2021 LIPID PANEL non HDL cholesterol (calc) 158 mg/dL (<160) Not Available [facility] ([facility]ized [facility] Ordering - All Locations) Patient Can Go To The Location Of Their Choice, 05/09/2021 16:12:01 05/09/19 22 05/09/2021 25OH VITAM IN D 25OH vitamin D 40.0 NG/mL (20-50 ) Not Available [facility] (Centralized Electronic Ordering - All Locations) Patient Can Go To The Location Of Their Choice, 05/09/2021 16:26:39 05/12/1905/12/2021 LAB ONLY URINA LYSIS appear/color LIGHT YELLO W CLEAR Not Available [facility] (Centralized Electronic Ordering - All Locations) Patient Can Go To The Location Of Their Choice, 05/12/2021 20:07:52 05/12/1905/12/2021 LAB ONLY URINA LYSIS sp. gravity 1.024 (1.002 -1.030 ) Not Available [facility] (Centralized Electronic Ordering - All Locations) Patient Can Go To The Location Of Their Choice, 05/12/2021 20:07:52 05/12/1905/12/2021 LAB ONLY URINA LYSIS urine pH 6.5 (5.0-8 .0) Not Available [facility] (Centralized Electronic Ordering - All Locations) Patient Can Go To The Location Of Their Choice, 05/12/2021 20:07:52 05/12/1905/12/2021 LAB ONLY URINA LYSIS urine albumin TRACE (neg) abnormal Not Available [facility] (Centralized [facility] Ordering - All Locations) Patient Can Go To The Location Of Their Choice, 05/12/2021 20:07:52 05/12/1905/12/2021 LAB ONLY URINA LYSIS urine glucose NEGATI VE (neg) Not Available [facility] (Centralized Electronic Ordering - All Locations) Patient Can Go To The Location Of Their Choice, 05/12/2021 20:07:52 05/12/1905/12/2021 LAB ONLY URINA LYSIS urine ketones NEGATI VE (neg) Not Available [facility] (Centralized Electronic Ordering - All Locations) Patient Can Go To The Location Of Their Choice, 05/12/2021 20:07:52 05/12/1905/12/2021 LAB ONLY URINA LYSIS urine bilirubin NEGATI VE (neg) Not Available [facility] (Centralized Electronic Ordering - All Locations) Patient Can Go To The Location Of Their Choice, 05/12/2021 20:07:52 05/12/1905/12/2021 LAB ONLY URINA LYSIS urine hemoglobin NEGATI VE (neg) Not Available [facility] (Centralized Electronic Ordering - All Locations) Patient Can Go To The Location Of Their Choice, 05/12/2021 20:07:52 05/12/1905/12/2021 LAB ONLY URINA LYSIS urine nitrite NEGATI VE (neg) Not Available [facility] (Centralized Electronic Ordering - All Locations) Patient Can Go To The Location Of Their Choice, 05/12/2021 20:07:52 05/12/1905/12/2021 LAB ONLY URINA LYSIS urine leukocyte NEGATI VE (neg) Not Available [facility] (Centralized Electronic Ordering - All Locations) Patient Can Go To The Location Of Their Choice, 05/12/2021 20:07:52 05/12/1905/12/2021 LAB ONLY URINA LYSIS urobilinogen NORMAL mg/dL (norm) Not Available [facility] ([facility] Order[facility] - All Locations) Patient Can Go To The Location Of Their Choice, 05/12/2021 20:07:52 05/12/1905/12/2021 LAB ONLY URINA LYSIS urine WBCs NONE SEEN /hpf (0-5) Not Available [facility] (Centralized Electronic Ordering - All Locations) Patient Can Go To The Location Of Their Choice, 05/12/2021 20:07:52 05/12/1905/12/2021 LAB ONLY URINA LYSIS urine RBCs NONE SEEN /hpf (0-3) Not Available [facility] (Centralized Electronic Ordering - All Locations) Patient Can Go To The Location Of Their Choice, 05/12/2021 20:07:52 05/12/1905/12/2021 LAB ONLY URINA LYSIS mucus SLIGHT /lpf Not Available [facility] (Centralized Electronic Ordering - All Locations) Patient Can Go To The Location Of Their Choice, [id number] 05/12/2021 20:07:52 05/12/1905/12/2021 LAB ONLY URINA LYSIS squamous epith 17 /hpf (0-8) high Not Available [facility] ([facility] Ordering - All Locations) Patient Can Go To The Location Of Their Choice, 05/12/2021 20:07:52 05/12/1905/12/2021 LAB ONLY URINA LYSIS budding yeast SLIGHT /hpf Not Available [facility] (Centralized [facility] Ordering - All Locations) Patient Can Go To The Location Of Their Choice, 05/12/2021 20:07:52 03/20/2003/20/2022 COMPL ETE CBC WITH DIFF WBC 5.3 K/mm3 (4.0-1 1.0) Not Available [facility] (Centralized Electronic Ordering - All Locations) Patient Can Go To The Location Of Their Choice, [id number] 03/20/2022 20:29:55 03/20/2003/20/2022 COMPL ETE CBC WITH DIFF RBC 4.36 M/mm3 (4.20- 5.40) Not Available [facility] (Centralized Electronic Ordering - All Locations) Patient Can Go To The Location Of Their Choice, 03/20/2022 20:29:55 03/20/2003/20/2022 COMPL ETE CBC WITH DIFF HGB 11.9 gm/dL (11.7- 15.5) Not Available [facility] (Centralized Electronic Ordering - All Locations) Patient Can Go To The Location Of Their Choice, 03/20/2022 20:29:55 03/20/2003/20/2022 COMPL ETE CBC WITH DIFF HCT 37.0 % (35.7- 45.8) Not Available [facility] (Centralized Electronic Ordering - All Locations) Patient Can Go To The Location Of Their Choice, 03/20/2022 20:29:55 03/20/2003/20/2022 COMPL ETE CBC WITH DIFF MCV 84.9 fL (80.0- 100.0) Not Available [facility] (Centralized Electronic Ordering - All Locations) Patient Can Go To The Location Of Their Choice, 03/20/2022 20:29:55 03/20/20 22 03/20/2022 COMPL ETE CBC WITH DIFF MCH 27.3 pg (27.0- 34.0) Not Available [facility] (Centralized Electronic Ordering - All Locations) Patient Can Go To The Location Of Their Choice, 03/20/2022 20:29:55 03/20/20 22 03/20/2022 COMPL ETE CBC WITH DIFF MCHC 32.2 g/dL (33.0- 37.0) low Not Available [facility] (Centralized Electronic Ordering - All Locations) Patient Can Go To The Location Of Their Choice, 03/20/2022 20:29:55 03/20/20 22 03/20/2022 COMPL ETE CBC WITH DIFF plt 283 K/mm3 (150-4 60) Not Available [facility] (Centralized Electronic Ordering - All Locations) Patient Can Go To The Location Of Their Choice, 03/20/2022 20:29:55 03/20/2003/20/2022 COMPL ETE CBC WITH DIFF RDW-SD 43.6 fL (<47.0 ) Not Available [facility] (Centralized Electronic Ordering - All Locations) Patient Can Go To The Location Of Their Choice, 03/20/2022 20:29:55 03/20/20 22 03/20/2022 COMPL ETE CBC WITH DIFF MPV 10.5 fL (9.4-1 2.4) Not Available [facility] (Centralized Electronic Ordering - All Locations) Patient Can Go To The Location Of Their Choice, 03/20/2022 20:29:55 03/20/2003/20/2022 COMPL ETE CBC WITH DIFF automated NRBC 0.0 #/100 _WBC' s Not Available [facility] (Centralized Electronic Ordering - All Locations) Patient Can Go To The Location Of Their Choice, 03/20/2022 20:29:55 03/20/2003/20/2022 COMPL ETE CBC WITH DIFF abs. NRBC 0.0 K/mm3 Not Available [facility] (Centralized Electronic Ordering - All Locations) Patient Can Go To The Location Of Their Choice, 03/20/2022 20:29:55 03/20/20 22 03/20/2022 COMPL ETE CBC WITH DIFF neut # 2.8 K/mm3 (1.3-7 .0) Not Available [facility] (Centralized Electronic Ordering - All Locations) Patient Can Go To The Location Of Their Choice, 03/20/2022 20:29:55 03/20/2003/20/2022 COMPL ETE CBC WITH DIFF lymph # 2.1 K/mm3 (0.8-3 .1) Not Available [facility] (Centralized Electronic Ordering - All Locations) Patient Can Go To The Location Of Their Choice, 03/20/2022 20:29:55 03/20/2003/20/2022 COMPL ETE CBC WITH DIFF mono# 0.3 K/mm3 (0.4-0 .9) low Not Available [facility] (Centralized Electronic Ordering - All Locations) Patient Can Go To The Location Of Their Choice, 03/20/2022 20:29:55 03/20/2003/20/2022 COMPL ETE CBC WITH DIFF eo # 0.1 K/mm3 (0.0-0 .4) Not Available [facility] (Centralized Electronic Ordering - All Locations) Patient Can Go To The Location Of Their Choice, 03/20/2022 20:29:55 03/20/2003/20/2022 COMPL ETE CBC WITH DIFF baso # 0.0 K/mm3 (0.0-0 .1) Not Available [facility] (Centralized Electronic Ordering - All Locations) Patient Can Go To The Location Of Their Choice, 03/20/2022 20:29:55 03/20/2003/20/2022 COMPL ETE CBC WITH DIFF abs. imm gran 0.0 K/mm3 Not Available [facility] ([facility] Ordering - All Locations) Patient Can Go To The Location Of Their Choice, 03/20/2022 20:29:55 03/20/20 22 03/20/2022 COMPL ETE CBC WITH DIFF neut 52.1 % (44-76 ) Not Available [facility] (Centralized Electronic Ordering - All Locations) Patient Can Go To The Location Of Their Choice, 03/20/2022 20:29:55 03/20/20 22 03/20/2022 COMPL ETE CBC WITH DIFF lymph 39.0 % (15-43 ) Not Available [facility] (Centralized Electronic Ordering - All Locations) Patient Can Go To The Location Of Their Choice, 03/20/2022 20:29:55 03/20/2003/20/2022 COMPL ETE CBC WITH DIFF monocyte 6.4 % (4.5-1 0.5) Not Available [facility] (Centralized Electronic Ordering - All Locations) Patient Can Go To The Location Of Their Choice, 03/20/2022 20:29:55 03/20/2003/20/2022 COMPL ETE CBC WITH DIFF eo 1.9 % (0-6) Not Available [facility] (Centralized Electronic Ordering - All Locations) Patient Can Go To The Location Of Their Choice, 03/20/2022 20:29:55 03/20/2003/20/2022 COMPL ETE CBC WITH DIFF baso 0.4 % (0-2) Not Available [facility] (Centralized Electronic Ordering - All Locations) Patient Can Go To The Location Of Their Choice, 03/20/2022 20:29:55 03/20/2003/20/2022 COMPL ETE CBC WITH DIFF imm gran 0.2 % Not Available [facility] (Centralized Electronic Ordering - All Locations) Patient Can Go To The Location Of Their Choice, 03/20/2022 20:29:55 03/20/2003/21/2022 BASIC METAB OLIC PANEL glucose 99 mg/dL (70-99 ) Not Available [facility] (Centralized Electronic Ordering - All Locations) Patient Can Go To The Location Of Their Choice, 03/21/2022 01:15:22 03/20/2003/21/2022 BASIC METAB OLIC PANEL BUN 15 mg/dL (8-23) Not Available [facility] (Centralized Electronic Ordering - All Locations) Patient Can Go To The Location Of Their Choice, 03/21/2022 01:15:22 03/20/2003/21/2022 BASIC METAB OLIC PANEL creatinine 1.0 mg/dL (0.5-1 .0) Not Available [facility] (Centralized Electronic Ordering - All Locations) Patient Can Go To The Location Of Their Choice, [id number] 03/21/2022 01:15:22 12/13/20 22 03/21/2022 BASIC METAB OLIC PANEL sodium 137 mmol/ L (133-1 45) Not Available [facility] (Centralized Electronic Ordering - All Locations) Patient Can Go To The Location Of Their Choice, 03/21/2022 01:15:22 03/20/2003/21/2022 BASIC METAB OLIC PANEL potassium 4.7 mmol/ L (3.6-5 .2) Not Available [facility] (Centralized Electronic Ordering - All Locations) Patient Can Go To The Location Of Their Choice, 03/21/2022 01:15:22 03/20/2003/21/2022 BASIC METAB OLIC PANEL chloride 102 mmol/ L (98-10 7) Not Available [facility] (Centralized Electronic Ordering - All Locations) Patient Can Go To The Location Of Their Choice, 03/21/2022 01:15:22 03/20/2003/21/2022 BASIC METAB OLIC PANEL bicarbonate 25 mmol/ L (22-29 ) Not Available [facility] (Centralized Electronic Ordering - All Locations) Patient Can Go To The Location Of Their Choice, 03/21/2022 01:15:22 03/20/2003/21/2022 BASIC METAB OLIC PANEL anion gap 10 (4-17) Not Available [facility] (Centralized Electronic Ordering - All Locations) Patient Can Go To The Location Of Their Choice, 03/21/2022 01:15:22 03/20/2003/21/2022 BASIC METAB OLIC PANEL calcium 9.7 mg/dL (8.6-1 0.5) Not Available [facility] (Centralized Electronic Ordering - All Locations) Patient Can Go To The Location Of Their Choice, 03/21/2022 01:15:22 03/20/2003/21/2022 BASIC METAB OLIC PANEL estimated GFR creatinine 66 mL/mi n/1.7 3_M2 Creat inine based estim ated glome rular filtr ation (eGFR ) in adult s is calcu lated using the Natio nal Kidne y Found ation recom med d 2020 CKD-E PI equat ion. Estim ates GFR from serum creat inine , age and sex. Not Available [facility] (Centralized Electronic Ordering - All Locations) Patient Can Go To The Location Of Their Choice, 03/21/2022 01:15:22 07/14/1907/13/2022 COMPR EHENS LILLIAN METAB OLIC PANL glucose 97 mg/dL (70-99 ) Not Available [facility] (Centralized Electronic Ordering - All Locations) Patient Can Go To The Location Of Their Choice, 07/13/2022 19:05:23 07/14/1907/13/2022 COMPR EHENS LILLIAN METAB OLIC PANL BUN 19 mg/dL (8-23) Not Available [facility] (Centralized Electronic Ordering - All Locations) Patient Can Go To The Location Of Their Choice, 07/13/2022 19:05:07/14/1907/13/2022 COMPR EHENS LILLIAN METAB OLIC PANL creatinine 0.9 mg/dL (0.5-1 .0) Not Available [facility] (Centralized Electronic Ordering - All Locations) Patient Can Go To The Location Of Their Choice, 07/13/2022 19:05:07/14/1907/13/2022 COMPR EHENS LILLIAN METAB OLIC PANL sodium 140 mmol/ L (133-1 45) Not Available [facility] (Centralized Electronic Ordering - All Locations) Patient Can Go To The Location Of Their Choice, 07/13/2022 19:05:07/14/1907/13/2022 COMPR EHENS LILLIAN METAB OLIC PANL potassium 4.7 mmol/ L (3.6-5 .2) Not Available [facility] (Centralized Electronic Ordering - All Locations) Patient Can Go To The Location Of Their Choice, 07/13/2022 19:05:07/14/1907/13/2022 COMPR EHENS LILLIAN METAB OLIC PANL chloride 105 mmol/ L (98-10 7) Not Available [facility] (Centralized Electronic Ordering - All Locations) Patient Can Go To The Location Of Their Choice, 07/13/2022 19:05:07/14/1907/13/2022 COMPR EHENS LILLIAN METAB OLIC PANL bicarbonate 25 mmol/ L (22-29 ) Not Available [facility] (Centralized Electronic Ordering - All Locations) Patient Can Go To The Location Of Their Choice, 07/13/2022 19:05:07/14/1907/13/2022 COMPR EHENS LILLIAN METAB OLIC PANL anion gap 10 (4-17) Not Available [facility] (Centralized Electronic Ordering - All Locations) Patient Can Go To The Location Of Their Choice, 07/13/2022 19:05:07/14/1907/13/2022 COMPR EHENS LILLIAN METAB OLIC PANL albumin 4.5 gm/dL (3.4-4 .8) Not Available [facility] (Centralized Electronic Ordering - All Locations) Patient Can Go To The Location Of Their Choice, 07/13/2022 19:05:07/14/1907/13/2022 COMPR EHENS LILLIAN METAB OLIC PANL calcium 9.9 mg/dL (8.6-1 0.5) Not Available [facility] (Centralized Electronic Ordering - All Locations) Patient Can Go To The Location Of Their Choice, 07/13/2022 19:05:07/14/1907/13/2022 COMPR EHENS LILLIAN METAB OLIC PANL bilirubin,to blaine 0.3 mg/dL (0-1.2 ) Not Available [facility] (Centralized Electronic Ordering - All Locations) Patient Can Go To The Location Of Their Choice, 07/13/2022 19:05:07/14/1907/13/2022 COMPR EHENS LILLIAN METAB OLIC PANL total protein 6.9 gm/dL (6.2-8 .2) Not Available [facility] (Centralized Electronic Ordering - All Locations) Patient Can Go To The Location Of Their Choice, 07/13/2022 19:05:07/14/1907/13/2022 COMPR EHENS LILLIAN METAB OLIC PANL Ag ratio 1.9 Not Available [facility] (Centralized Electronic Ordering - All Locations) Patient Can Go To The Location Of Their Choice, 07/13/2022 19:05:07/14/1907/13/2022 COMPR EHENS LILLIAN METAB OLIC PANL AST 22 U/L (0-32) Not Available [facility] (Centralized Electronic Ordering - All Locations) Patient Can Go To The Location Of Their Choice, 07/13/2022 19:05:23 07/14/1907/13/2022 COMPR EHENS LILLIAN METAB OLIC PANL alk phos 133 U/L (35-10 4) high Not Available [facility] (Centralized Electronic Ordering - All Locations) Patient Can Go To The Location Of Their Choice, 07/13/2022 19:05:23 07/14/19 23 07/13/2022 COMPR EHENS LILLIAN METAB OLIC PANL ALT 44 U/L (0-33) high Not Available [facility] (Centralized Electronic Ordering - All Locations) Patient Can Go To The Location Of Their Choice, 07/13/2022 19:05:23 07/14/19 23 07/13/2022 COMPR EHENS LILLIAN METAB OLIC PANL estimated GFR creatinine 68 mL/mi n/1.7 3_M2 Creat inine based estim ated glome rular filtr ation (eGFR ) in adult s is calcu lated using the Natio nal Kidne y Found ation recom med d 2020 CKD-E PI equat ion. Estim ates GFR from serum creat inine , age and sex. Not Available [facility] (Centralized Electronic Ordering - All Locations) Patient Can Go To The Location Of Their Choice, 07/13/2022 19:05:23 07/14/1907/13/2022 LIPID PANEL cholesterol, total 216 mg/dL (<200) high Not Available [facility] (Centralized Electronic Ordering - All Locations) Patient Can Go To The Location Of Their Choice, 07/13/2022 19:05:25 07/14/1907/13/2022 LIPID PANEL triglyceride 131 mg/dL (<150) Not Available [facility] (Centralized Electronic Ordering - All Locations) Patient Can Go To The Location Of Their Choice, 07/13/2022 19:05:25 07/14/1907/13/2022 LIPID PANEL HDL chol 48 mg/dL (>39) Not Available [facility] (Centralized Electronic Ordering - All Locations) Patient Can Go To The Location Of Their Choice, 07/13/2022 19:05:25 07/14/1907/13/2022 LIPID PANEL LDL cholesterol, calculated 142 mg/dL (0-130 ) high Not Available [facility] (Centralized Electronic Ordering - All Locations) Patient Can Go To The Location Of Their Choice, [id number] 07/13/2022 19:05:25 07/14/19 23 07/13/2022 LIPID PANEL non HDL cholesterol (calc) 168 mg/dL (<160) high Not Available [facility] (Centralized Electronic Ordering - All Locations) Patient Can Go To The Location Of Their Choice, [id number] 07/13/2022 19:05:25 07/14/19 23 07/13/2022 25OH VITAM IN D 25OH vitamin D 29.5 NG/mL (20-50 ) Not Available [facility] (Centralized Electronic Ordering - All Locations) Patient Can Go To The Location Of Their Choice, [id number] 07/13/2022 19:05:26 05/29/19 22 05/29/2021 US, abdom en, compl ete US Abdome n Comp Reason : R10.9 RT FLANK PAIN; Clinic al Questi on(s): Other: COMPAR CHILO: No prior ultras ounds, correl ation with CT of the abdome n and pelvis on 09/07/19 19. FINDIN GS: Liver: Normal in size and echote xture. No focal lesion is seen. Main portal vein patent with normal hepato petal direct ion of flow. Gallbl adder: No gallst ones. Normal wall thickn ess. No perich olecys tic fluid. Negati ve Wen sign. Biliar y Tree: No intrah epatic or extrah epatic bile duct dilati on is identi fied. Common duct: 0.8 cm, Which is slight ly more promin ent than averag e, but the duct is seen to taper normal ly into the pancre atic head and there is no visibl e intrah epatic lumina l stone. Pancre as: No abnorm ality in the visual ized portio ns of the pancre as. Spleen : Normal in size and echote xture. Right kidney : 10.2 cm in length . Normal parenc hymal echote xture and thickn ess. No hydron ephros is, stone or mass. Left kidney : 10.1 cm in length . Normal parenc hymal echote xture and thickn ess. No hydron ephros is, stone or mass. Aorta: Normal calibe r and contou r. Inferi or vena cava: Normal . Other: No free fluid. IMPRES ARABELLA: Common bile duct measur es slight ly large at up to 0.8 cm. This is slight ly more promin ent than averag e, but the duct is seen to taper normal ly into the pancre atic head and there is no visibl e intrah epatic lumina l stone. If approp riate, correl ation with biliru bin levels may be helpfu l to assure no eviden ce of biliar y obstru ction. Otherw ise normal abdomi nal ultras ound. WSN: [id number] Orderi ng Physic femi: Lynda Kendrick Dictat ed By: Coretta Tang MD, I Dictat ed Date/T salvador: 10:11 a Review ed By: Coretta Tang MD, I Signed By: Coretta Tang MD, I Signed Date/T salvador: 10:11 am Transc ribed By: CSB Transc ribed Date/T salvador: 10:08 am Patien t Class: Outpat ient [facility] (Outpt Imaging) [address], [place], [address], 05/31/2021 13:11:41 05/29/19 22 05/29/2021 US, abdom en + pelvi s No observ ation record ed. [facility] Orders [address], [place], [address], 05/31/2021 13:11:41 02/22/20 22 02/02/2022 DEXA, axial skele ton ====== ====== ====== ====== ====== ====== ====== ====== ====== ====== ===== Bone Densit y Report ====== ====== ====== ====== ====== ====== ====== ====== ====== ====== ===== Name: CATIE RODRIGUEZ t ID: [id number] Age: 66 Sex: Female Ethnic ity: [place] ic Date of : 1955 ------ ------ ------ ------ ------ ------ ------ ------ ------ ------ ----- Indica tion: PETTY CALLOWAY Referr ing Ariadne er: LYNDA KENDRICK Study: Bone densit ometry was perfor med. Exam Date: 2021 Access ion number : [id number] Bone Densit y: ------ ------ ------ ------ ------ ------ ------ ------ ------ ------ ----- Region BMD T-scor e Z-scor e Classi ficati on ------ ------ ------ ------ ------ ------ ------ ------ ------ ------ ----- AP Spine (L1-L4 ) 0.791 -2.3 -0.6 Osteop enia Femora l Neck (Left) 0.656 -1.7 -0.4 Osteop enia Total Hip (Left) 0.841 -0.8 0.2 Normal ------ ------ ------ ------ ------ ------ ------ ------ ------ ------ ----- World Health Organi zation criter ia for BMD impres arabella classi reyna alejandro ts as: Normal (T-sco re at or above -1.0), Osteop enia (T-sco re betwee n -1.0 and -2.5), or Osteop orosis (T-sco re at or below -2.5). 10-candy r Fractu re Risk: ------ ------ ------ ------ ------ ------ ------ ------ ------ ------ ----- FRAX not report ed andrew e: Premen opausa l woman ------ ------ ------ ------ ------ ------ ------ ------ ------ ------ ----- Previo us Exams: ------ ------ ------ ------ ------ ------ ------ ------ ------ ------ ----- Region Exam Age BMD T-scor e BMD Change BMD Change Date g/cm2 vs Baseli ne vs Previo us ------ ------ ------ ------ ------ ------ ------ ------ ------ ------ ----- AP Spine( L1-L4) 2021 66 0.791 -2.3 -2.8%* 0.0% 2019 64 0.791 -2.3 -2.9%* -2.9%* 2017 61 0.814 -2.1 Total Hip(Le ft) 2021 66 0.841 -0.8 1.0% 0.3% 2019 64 0.839 -0.8 0.8% 0.8% 2017 61 0.833 -0.9 Femora l Neck(L eft) 2021 66 0.656 -1.7 5.6%* 3.0% 2019 64 0.637 -1.9 2.5% 2.5% 2017 61 0.621 -2.1 ------ ------ ------ ------ ------ ------ ------ ------ ------ ------ ----- *Andrzej es signif icance at 95% confid ence level, LSC for AP Spine = 0.022 g/cm2, LSC for Total Hip = 0.027 g/cm2 or 0.029 g/cm2 for differ ent scan types Clinic al [facility] Provid ed by Radha mendoza: ------ ------ ------ ------ ------ ------ ------ ------ ------ ------ ----- screen ing for osteop orosis none Menopa use Age: 52 Calciu m 64 Onset of menses at age 15 Premen opausa l Number of childr en 2 ------ ------ ------ ------ ------ ------ ------ ------ ------ ------ ----- Impres arabella: The radha mendoza has osteop enia as determ ined by WHO criter ia. Report ed by: Jorge woody MD on 2021 9:38:0 0 AM. Dictat ed By: Jorge Mireles MD Dictat ed Date/T salvador: 9:41 am Review ed By: Jorge Mireles MD Signed By: Jorge Mireles MD Signed Date/T salvador: 9:41 am Transc ribed By: FRAN Transc ribed Date/T salvador: 9:41 am Radha mendoza Class: Outpat ient [facility] (Outpt Imaging) [address] [place], [address], 02/21/2022 11:00:51 02/22/20 22 02/02/2022 bone densi ty No observ ation record ed. [facility] [address], [place], [address], 02/22/2022 21:38:44 07/14/19 23 07/13/2022 XR, chest , 2 view Chest 2 Views Fronta l and Lat Reason : cough, wheezi ng, rales, r o pna COMPAR CHILO: None. FINDIN GS: LINES AND TUBES: None. LUNGS AND PLEURA : Clear lungs. Normal pulmon evan vascul arity. No pleura l effusi on. No pneumo thorax . HEART, MEDIAS TINUM AND RAUDEL: Heart is normal in size. Normal medias tinal and hilar contou r. BONES AND SOFT TISSUE S: No acute abnorm ality. IMPRES ARABELLA: No acute abnorm ality. WSN: [id number] Orderi ng Physic femi: Ellen beard IT SECURITY MANAGER, Maddie Jett Dictat ed By: Mike Foster MD, V Dictat ed Date/T salvador: 3:40 pm Review ed By: Pati azul MD, Mike Burgos Signed By: Mike Foster MD, V Signed Date/T salvador: 3:40 pm Transc ribed By: FRAN Transc ribed Date/T salvador: 3:39 pm Patien t Class: Outpat ient [email or web address] [facility] (Outpt Imaging) [address] [place], [address], 08/03/2022 11:16:02 Result Notes None recorded. Problems Name Problem SNOMED Code Status Onset Date Resolution Date Notes Provider Name and Address Organization Details Recorded Time Adverse reaction to food [id number] Completed 201211/16/2013 IMPRESSI ON: WITH REPORTED PAST ALLERGY TO APPLES, BANANAS, NOW ? SOMETHIN G RECENTLY IS SALSA. NO PAST ALLX EVAL, WILL CONTACT PROVIDER S FOR FURTHER W/U.; RECORDED 09/23/19 13 8:52AM BY VIRGINIA JACOBS MA, ANNOTATI ON/ADDEN DUM Mely Kendrick PA-C [address], [place], [address], [facility] 6 12:16:04 Backache [id number] Completed 201211/16/2013 RECORDED 09/23/19 13 8:52AM BY VIRGINIA JACOBS MA, ANNOTATI ON/ADDEN DUM Mely Kendrick PA-C [address], [place], [address], [facility] [place] 6 12:16:04 Breast lump [id number] Completed 201211/16/2013 STORY: R BREAST, APPROX 11:00 3 CM FROM NIPPLE.; IMPRESSI ON: 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 WILL AWAIT FULL REPORT WITH PAST MEDICAL RECORDS. ; RECORDED 09/23/19 13 8:52AM BY VIRGINIA JACOBS MA, ANNOTJAMES ON/ADDEN DUM Mely Kendrick PA-C [address], [place], [address], [facility] [place] 6 12:16:04 Screenin g for malignan t neoplasm of cervix Completed 201211/16/2013 RECORDED 09/23/19 13 8:52AM BY VIRGINIA JACOBS MA, ANNOTJAMES ON/ADDEN DUM Mely Kendrick PA-C [address], [place], [address], [facility] [place] 6 12:16:04 Screenin g for malignan t neoplasm of breast Completed 201211/16/2013 RECORDED 09/23/19 13 8:52AM BY VIRGINIA JACOBS MA, ANNOTATI ON/ADDEN DUM Mely Kendrick PA-C [address], [place], [address], [facility] [place] 6 12:16:04 Eruption [id number] Completed 201311/16/2013 IMPRESSI ON: UNCLEAR CAUSE FOR RASH. WILL DO STEROID CREAM TRIAL AND SEE DERM; RECORDED 08/05/19 14 7:39AM BY NIKA BLANCO ON/ADDEN DUM [facility] [address], [place], [address], [facility] [place] 6 12:16:04 Influenz a vaccine needed 02872272655 06 Completed 201111/16/2013 RECORDED 03/10/20 12 9:51AM BY VIRGINIA JACOBS MA, OFFICE VISIT [facility] [address], [place], [address], [facility] [place] 6 12:16:04 Gastroen teritis 11493724 Completed 05/08/2017 [place] [address], [place], [address], [facility] [place] 8 09:41:05 Abnormal vaginal bleeding 130946778 Active Eren tyler, [facility] 6 12:52:10 Fatigue 22591247 Completed 04/12/2020 [facility] [address], [place], [address], [facility] [place] 1 10:40:03 Hyperlip idemia 12203139 Active 2017 [facility] [address], [place], [address], [facility] [place] 8 09:49:11 Osteopen ia 204978872 Active 2017 [facility] [address], [place], [address], [facility] [place] 8 15:38:10 Vertigo 802445001 Active 2017 Maddie tyler [facility] 8 15:18:31 History of divertic ulitis 66921831115 9100 Active 2018 required hosp stay, better 09/19/18 Maddie pat jayson, [facility] 9 10:03:45 Adverse reaction to food 360630602 Completed 201210/20/2013 IMPRESSI ON: WITH REPORTED PAST ALLERGY TO APPLES, BANANAS, NOW ? SOMEMELLISSA Nolberto RECENTLY IS SALSA. NO PAST ALLX EVAL, WILL CONTACT PROVIDER S FOR FURTHER W/U.; RECORDED 09/23/19 13 8:52AM BY VIRGINIA JACOBS MA, ANNOTATI ON/ADDEN DUM Mely Major Aide-C [address], [place], [address], [facility] [place] 6 12:16:04 Backache [id number] Completed 201210/20/2013 RECORDED 09/23/19 13 8:52AM BY VIRGINIA JACOBS MA, ANNOTATI ON/ADDEN DUM Mely ADmantX PA-C [address], [place], [address], [facility] [place] 6 12:16:04 Breast lump [id number] Completed 201210/20/2013 STORY: R BREAST, APPROX 11:00 3 CM FROM NIPPLE.; IMPRESSI ON: 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 WILL AWAIT FULL REPORT WITH PAST MEDICAL RECORDS. ; RECORDED 09/23/19 13 8:52AM BY VIRGINIA JACOBS MA, ANNOTATI ON/ADDEN Barburrito PA-C [address], [place], [address], [facility] [place] 6 12:16:04 Pain of breast 73849716 Completed 201305/13/2019 Farzaneh padgett [place] null, [facility] 0 14:30:55 Screenin g for malignan t neoplasm of cervix Completed 201210/20/2013 RECORDED 09/23/19 13 8:52AM BY VIRGINIA JACOBS MA, ANNOTATI ON/ADDEN DUM Mely Kendrick PA-C [address], [place], [address], [facility] 6 12:16:04 Low back pain 471844030 Completed 201305/08/2017 IMPRESSI ON: SEE PSSP FOR CHRONIC NECK AND BACK PAIN. ? SI JOINT INVOLVEM ENT; RECORDED 08/05/19 14 7:39AM BY POOJA HOWE I, OFFICE VISIT Mely GLASGOW-C [address], [place], [address], [facility] 8 09:41:20 Screenin g for malignan t neoplasm of colon Completed 201305/13/2019 KAM Euceda, [facility] 0 14:31:05 Adult health examinat ion Completed 201306/29/2020 KAM Euceda, [facility] 1 14:31:27 Alopecia 48070736 Active 2013 KAM Euceda, [facility] 0 14:30:42 Screenin g for malignan t neoplasm of breast Completed 201210/20/2013 RECORDED 09/23/19 13 8:52AM BY VIRGINIA JACOBS MA, ANNOTATI ON/ADDEN DUM Mely GLASGOW-C [address], [place], [address], [facility] 6 12:16:04 Neck pain 66019360 Completed 201305/13/2019 KAM Euceda, [facility] 0 14:30:47 Eruption [id number] Completed 201310/20/2013 IMPRESSI ON: UNCLEAR CAUSE FOR RASH. WILL DO STEROID CREAM TRIAL AND SEE DERM; RECORDED 08/05/19 14 7:39AM BY NIKA BLANCO ON/ADDEN DUM Mely GLASGOW-C [address], [place], [address], [facility] 6 12:16:04 Influenz a vaccine needed 74456455133 06 Completed 201110/20/2013 RECORDED 03/10/20 12 9:51AM BY VIRGINIA JACOBS MA, OFFICE VISIT Mely GLASGOW-Nadiya [address], [place], [address], [facility] 6 12:16:04 Administ ration of diphther ia, pertussi s, and tetanus vaccine Completed 201305/13/2019 Farzaneh padgett [place] null, [facility] 0 14:31:01 Allergy to food 386775429 Active 2020 Mely GLASGOW-C [address], [place], [address], [facility] 1 10:55:29 Gastro-e sophagea l reflux disease with esophagi tis 139845118 Active 2020 Mely GLASGOW-Nadiya [address] [facility] [address], [place], [address], [facility] 1 15:18:24 Right flank pain 850004801 Active 2021 Mely GLASGOW-Nadiya [address] [facility] [address], [place], [address], [facility] 2 09:45:30 Essentia l hyperten arabella 07091692 Active 2021 Mely GLASGOW-Nadiya [address] [facility] [address], [place], [address], [facility] 2 09:16:36 Divertic ulitis of colon 269791602 Active 2021 Mely Kendrick PA-C [address], [place], [address], [facility] 2 15:24:41 Body mass index 25-29 - overweig ht 123476020 Active 2022 Mely Kendrick PA-C [address], [place], [address], [facility] 3 15:34:07 Pneumoni a 360048994 Active 2022 Maddie pat [facility] 3 16:47:13 Problem Notes None recorded. Procedures Surgical History Date Name Laterality Status Provider Name and Address Organization Details Recorded Time 04/15/19 21 Most Recent Mammogram completed Kelly Barber [facility] 04/21/2020 14:58:28 04/15/19 21 Mammogram screening completed Kelly Barber [facility] 04/21/2020 14:58:16 02/01/20 20 Most Recent Bone Density completed Farzaneh richards [place] [facility] 06/29/2020 14:26:31 02/01/20 20 Dxa bone density alex vrt fx completed Farzaneh richards MA [facility] 06/29/2020 14:26:21 01/25/20 20 Date of Last Pap Smear completed Farzaneh richards MA [facility] 06/29/2020 14:27:37 10/21/19 19 Date of Last Colonoscopy completed Rose Rodriguez [facility] 10/21/2018 09:17:43 10/21/19 19 Colonoscopy completed Rose Rodriguez [facility] 10/21/2018 09:17:18 Imaging Results Imaging Date Name Status LastModified by Organiz ation Details LastModified Time 05/29/2021 US, abdomen, complete completed [facility] (Outpt Imaging) [address] [place], [address], 05/31/2021 13:11:41 05/29/2021 US, abdomen + pelvis completed [facility] Orders [address], [place], [address], 05/31/2021 13:11:41 02/02/2022 DEXA, axial skeleton completed [facility] (Outpt Imaging) [address] , [place], [address], 02/21/2022 11:00:51 02/02/2022 bone density completed [facility] [address] [place], [address], 02/22/2022 21:38:44 07/13/2022 XR, chest, 2 view completed [id number] [facility] (Outpt Imaging) [address] [place], [address], 08/03/2022 11:16:02 Procedure Notes None recorded. Medical Equipment None Reported. Allergies Allergen ID Allergen Name Allergen Category Reaction Reaction Severity Criticality Documentation Date Start Date Code Code System Note Provider Name and Address Organization Details Recorded Time 06321 dallin extract food,medi cation facial swelling moderate Not available 09/04/2018 46570 1 [facility] 13:48:08 4942 No known allergy (situatio n) Not available Not available Not available Not available 10/20/20132011 53118 6003 SNOMED COMME NT: RECOR DED 08/04 7:39A M BY TRACIE GALEANO VISIT ; KAM Euceda [facility] 0 14:33:15 Medications Name Sig Start Date Stop Date Status Note LastModified by Organization Details LastModified Time metronida zole 500 mg tabs 05/13 completed Not Available Not Available Not Available amoxicill in 500 mg tabs 05/13 completed Not Available Not Available Not Available clenpiq 10-3.5-12 mg-gm -gm/160ml soln 05/13 completed Not Available Not Available Not Available amoxicill in/clavul anate potassium 875-125 mg tabs 05/13 completed Not Available Not Available Not Available ciproflox acin hydrochlo ride 500 mgtabs 05/13 completed Not Available Not Available Not Available tramadol hcl 50 mg tabs 05/13 completed Not Available Not Available Not Available chlorhexi dine gluconate 0.12 % soln 05/13 completed Not Available Not Available Not Available cyclobenz aprine 10 mg tablet Take 1 tablet every day by oral route for 10 days. 02/04 completed Not Available Not Available Not Available azithromy sol 250 mg tablet TAKE 2 TABLETS (500 MG) BY ORAL ROUTE ONCE DAILY FOR 1 DAY THEN 1 TABLET (250 MG) BY ORAL ROUTE ONCE DAILY FOR 4 DAYS 04/12 completed Not Available Not Available Not Available medroxypr ogesteron e 2.5 mg tablet Take 1 tablet every day by oral route as directed for 90 days. 05/08 completed Not Available Not Available Not Available promethaz ine 12.5 mg tablet active Not Available Not Available No t Available prednison e 20 mg tablet TAKE 2 TABLETS BY MOUTH EVERY DAY FOR 5 DAYS active Not Available Not Available No t Available metronida zole 500 mg tablet TAKE 1 TABLET BY MOUTH EVERY 8 HOURS FOR 7 DAYS 05/22 completed Not Available Not Available Not Available amlodipin e 5 mg tablet TAKE 1 TABLET BY MOUTH EVERY DAY active Not Available Not Available No t Available ciproflox acin 500 mg tablet Take 1 tablet every 12 hours by oral route for 10 days. 09/11 completed [facility] Not Available Not Available Not Available omeprazol e 40 mg capsule,d elayed release Take 1 capsule every day by oral route for 30 days. active Not Available Not Available No t Available tramadol 50 mg tablet 05/13 completed Not Available Not Available Not Available amoxicill in 500 mg tablet 05/13 completed Not Available Not Available Not Available oxycodone -acetamin ophen 5 mg-325 mg tablet active Not Available Not Available Not Available amoxicill in 875 mg tablet TAKE 1 TABLET BY MOUTH EVERY 12 HOURS WITH MEALS FOR 10 DAYS 08/10 completed Not Available Not Available Not Available meclizine 25 mg tablet Take 1 tablet 3 times a day by oral route for 10 days. 09/04 completed Not Available Not Available Not Available Zofran ODT 4 mg disintegr ating tablet Take 1 tablet every 12 hours by oral route as needed for 3 days. 05/08 completed Not Available Not Available Not Available misoprost ol 200 mcg tablet active Not Available Not Available Not Available betametha sone dipropion ate 0.05 % topical cream APPLY TWICE DAILY FOR RASH 10/06 completed RECORDED 07/24/19 14 2:24PM BY [facility], [facility] ON AUTO-MARIE CTIVATIO N; Not Available Not Available Not Available omeprazol e 20 mg capsule,d elayed release Take 1 capsule every day by oral route in the morning for 14 days. 11/28 completed Not Available Not Available Not Available levofloxa sol 750 mg tablet TAKE 1 TABLET BY MOUTH EVERY DAY FOR 7 DAYS 05/22 completed Not Available Not Available Not Available albuterol sulfate HFA 90 mcg/actua tion aerosol inhaler INHALE 2 PUFFS BY MOUTH FOUR TIMES DAILY FOR 14 DAYS NEEDED active Not Available Not Available No t Available estradiol 0.0375 mg/24 hr semiweekl y transderm al patch Apply 1 patch every day by transder m. route as directed for 84 days. 05/08 completed Not Available Not Available Not Available Naprosyn 500 mg tablet Take 1 tablet twice a day by oral route for 15 days. 02/04 completed Not Available Not Available Not Available amoxicill in 875 mg-potass ium clavulana te 125 mg tablet Take 1 tablet every 12 hours by oral route for 10 days. 07/02 completed Not Available Not Available Not Available Readi-Cat 2 2.1 % (w/v), 2.0 % (w/w) oral suspensio n Take 450 mL twice a day by oral route as directed for 1 day. 09/19 completed Not Available Not Available Not Available chlorhexi dine gluconate 0.12 % mouthwash 05/13 completed Not Available Not Available Not Available calcium take 1 tab daily po 2013 active Not Available Not Available Not Avai lable multivita min take 1 tab daily po 2013 active Not Available Not Available Not Avai lable GaviLyte- G 236 gram-22.7 4 gram-6.74 gram-5.86 gram oral solution active Not Available Not Available Not Available Brisdelle 7.5 mg capsule active Not Available Not Available Not Available Clenpiq 10 mg-3.5 gram-12 gram/160 mL oral solution 05/13 completed Not Available Not Available Not Available Vitals Date Recorded Body height Body mass index (BMI) Body weight Heart rate Oxygen saturation Oxygen saturation in Arterial blood by Pulse oximetry Body temperature Systolic blood pressure Diastolic blood pressure Provider Name and Address Organization Details Last Updated DateTime 2 157.48 cm 28.7 kg/m2 17045 g 75 /min 97 % 97 % 98.96 [degF] 156 mm[Hg] 101 mm[Hg] Florecita Cee MA [facility] 2 08:51:10 Date Recorded Body height Body mass index (BMI) Body weight Heart rate Oxygen saturation Oxygen saturation in Arterial blood by Pulse oximetry Body temperature Systolic blood pressure Diastolic blood pressure Provider Name and Address Organization Details Last Updated DateTime 2 157.48 cm 28.7 kg/m2 71142 g 75 /min 97 % 97 % 98.96 [degF] 123 mm[Hg] 78 mm[Hg] Florecita Cee MA [facility] 2 08:53:25 Date Recorded Body height Body mass index (BMI) Body weight Heart rate Oxygen saturation Oxygen saturation in Arterial blood by Pulse oximetry Body temperature Systolic blood pressure Diastolic blood pressure Provider Name and Address Organization Details Last Updated DateTime 2 157.48 cm 28.7 kg/m2 05726 g 91 /min 100 % 100 % 98.3 [degF] 130 mm[Hg] 82 mm[Hg] Farzaneh padgett MA [facility] 2 14:56:36 Date Recorded Body height Body mass index (BMI) Body weight Oxygen saturation Oxygen saturation in Arterial blood by Pulse oximetry Heart rate Body temperature Systolic blood pressure Diastolic blood pressure Provider Name and Address Organization Details Last Updated DateTime 3 157.48 cm 28.8 kg/m2 52351.8 g 99 % 99 % 86 /min 97.9 [degF] 144 mm[Hg] 85 mm[Hg] Mariah Harris MA [facility] 3 15:22:52 Date Recorded Body height Body mass index (BMI) Body weight Heart rate Oxygen saturation Oxygen saturation in Arterial blood by Pulse oximetry Body temperature Systolic blood pressure Diastolic blood pressure Systolic blood pressure Diastolic blood pressure Provider Name and Address Organization Details Last Updated DateTime 3 157.48 cm 26.5 kg/m2 28921.8 9 g 87 /min 97 % 97 % 98 [degF] 158 mm[Hg] 97 mm[Hg] 162 mm[Hg] 100 mm[Hg] Kristal Nguyen MA [facility] 3 13:43:56 Social History Question Answer Notes LastModified by Organizat ion Details LastModified Time Tobacco Smoking Status Never Smoker Abhijit tyler, [facility] 07/26/2015 11:14:48 Do You Have An Advance Directive? Yes HCP [email or web address] Information not available 03/20/2022 What Is Your Level Of Alcohol Consumption? Occasional Information not available 07/26/2015 Is Blood Transfusion Acceptable In An Emergency? No Information not available 07/26/2015 What Is Your Level Of Caffeine Consumption? Moderate Information not available 07/26/2015 How Much Tobacco Do You Chew? None Information not available 07/26/2015 Are You Currently Employed? Yes [email or web address] Information not available 05/09/2021 What Type Of Diet Are You Following? REGULAR Information not available 07/26/2015 Which Illicit Or Recreational Drugs Have You Used? None Information not available 05/13/2019 Do You Or Have You Ever Used E-cigarettes Or Vape? 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 With Others (Ender) [email or web address] Information not available 03/20/2022 Do You Take Precautions To Prevent Distracted Driving? Yes Information not available 07/26/2015 How Often Do You Need To Have Someone Help You When You Read Instructions, Pamphlets, Or Other Written Material From Your Doctor Or Pharmacy? Never Information not available 07/26/2015 Have You Served In The ? No Information not available 05/13/2019 What Was The Date Of Your Most Recent Tobacco Screening? 05/22/2022 [email or web address] Information not available 05/22/2022 How Many Children Do You Have? 2 Soraida Information not available 05/13/2019 Do You Use Protection During Sex? No Information not available 07/26/2015 Do You Use Your Seat Belt Or Car Seat Routinely? Yes [email or web address] Information not available 05/09/2021 Seat Belts Used Routinely Yes [email or web address] Information not available 03/20/2022 Are You Sexually Active? Yes Information not available 07/26/2015 Smoke Alarm In Home Yes [email or web address] Information not available 03/20/2022 Do You Have Smoke And Carbon Monoxide Detectors In Your Home? Yes [email or web address] Information not available 05/09/2021 At What Age Did You Start Smoking Tobacco? 0 Information not available 05/13/2019 Are You Passively Exposed To Smoke? No Information not available 07/26/2015 Do You Or Have You Ever Used Smokeless Tobacco? Never Used Smokeless Tobacco Information not available 05/13/2019 How Much Tobacco Do You Smoke? No Information not available 07/26/2015 Do You Use Any Illicit Or Recreational Drugs? No Information not available 03/20/2022 Do You Use Sunscreen Routinely? Yes Information not available 07/26/2015 How Many Years Have You Smoked Tobacco? 0 Information not available 05/13/2019 Do You Or Have You Ever Used Any Other Forms Of Tobacco Or Nicotine? No Information not available 03/20/2022 Sex: Unknown Functional Status Question Answer Note LastModified by Organizat ion Details LastModified Time Are you able to walk? [email or web address] Information not available 03/20/2022 Are you able to care for yourself? Yes Information not available 07/26/2015 What is your exercise level? Occasional Information not available 07/26/2015 Mental Status None recorded. Family History Relationship Description Onset Age of this Age Resolved Age Notes LastModified by Organization Details LastModified Time Mother Essential hypertension Not available 1 05/21/2021 14:42:59 Mother Hypercholest erolemia [email or web address] Not available 11:14:48 Mother Diabetes mellitus [email or web address] Not available 11:14:48 Father Essential hypertension [email or web address] Not available 1 05/21/2021 14:42:59 Father Diabetes mellitus [email or web address] Not available 2021 08:57:57 Father Hypercholest erolemia [email or web address] Not available 11:14:48 Medical History Condition Response Obesity Y Diverticulitis Y Allergies Y Gynecological History Statement/Question Response Date of Last Colonoscopy 10/20/2018 Most Recent Bone Density 02/01/2020 Menses Monthly N Date of Last Pap Smear 01/25/2020 Age at Menarche 15 Current Control Method None Most Recent Mammogram 04/15/2020 Age at First Child 20 LMP Unknown Obstetrics History GPAL:G 0 P 0 0 0 0 Immunizations Vaccine Type Date Status Note Provider Nam e and Address Organization Details Recorded Time COVID-19, mRNA, LNP-S, PF, 30 mcg/0.3 mL dose 1 completed KAM Fung, [facility] 05/16/2021 08:46:03 COVID-19, mRNA, LNP-S, PF, 30 mcg/0.3 mL dose 1 [facility] 05/16/[facility] 08:46:03 COVID-19, mRNA, LNP-S, PF, 30 mcg/0.3 mL dose 2 completed KAM Fung, [facility] 05/16/2021 08:46:03 Tdap 4 completed Not Available [facility] 10/20/2013 13:49:23 Influenza, split virus, quadrivalent , PF 1 cancelled patient objection Mely Kendrick PA-C [address] [address], [place], [address], [facility] 04/12/2020 10:39:44 Past Encounters Encounter ID Performer Location Encounter Start Date Encounter Closed Date Diagnosis/Indication Diagnosis SNOMED-CT Code Diagnosis ICD10 Code Diagnosis Note [id number] auto[facility]Comm erce [address] [facility] [place] [address] 03/10/2012 00:00:00 [id number] [facility] [address] [facility] [address] [place] [address] 09/22/2012 00:00:00 [id number] [facility] [address] [facility] [address] [place] [address] 08/04/2013 00:00:00 [id number] Eren ulcio Main Office [address] [facility] [address] [place] [address] 07/26/2015 10:29:35 07/26/2015 11:57:12 Anemia 893970651 D64.9 Related to vaginal bleeding. Repeat labs. Adult [facility] th examination 150120294 Z00.00 Discussed healthy diet and exercise recommenda tions. Advised on monthly self breast examinatio ns. Labs to be done fasting to screen for metabolic disease. PT. is advised to lose weight to achieve BMI of under 25. Refuses flu vaccine. 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 Fatigue 02834135 R53.83 Overweight 579490791 E66 .3 Increase exercise activity to 30 minute walking at least 4 days weekly. Pt. agrees to walk and lower total calories. [id number] Patrick Vela MD Main Office [address] [facility] [address] [place] [address] 05/08/2017 08:36:26 05/08/2017 10:07:35 Adult health examination 925826565 Z00.00 Discussed healthy diet and exercise recommenda tions. Advised on monthly self breast examinatio ns. Labs to be done fasting to screen for metabolic disease. PT. is advised to lose weight to achieve BMI of under 25. Refuses flu vaccine. Screening for malignant neoplasm of breast 699636397 Z12.31 Fatigue 35564115 R53.83 Leukopenia 94589288 D72. 819 Hyperlipidemia 17342091 E78.00 Varicella vaccination 68 957969 Z23 on or after age 60 Body mass index 25-29 - overweight 656405359 E66.3 Z68.25 [id number] Eren lucio Main Office [address] [facility] [address] [place] [address] 05/21/2017 09:22:37 05/21/2017 10:20:51 Chronic neck pain 8833900375 107 M54.2 Neck sprain 565951433 S1 3.9XXA [id number] Patrick Vela MD Main Office [address] [facility] [address] [place] [address] 02/04/2018 15:00:36 02/04/2018 15:40:21 Needs influenza immunization 803570549 Z23 Leukopenia 22925769 D72. 819 Renal insufficiency 7231 77665 N28.9 Vertigo 197268717 R42 Check labs. Increase hydration. Start Meclizine 25 mg TID. Avoid driving until symptoms subside. [id number] Maddie Cross Main Office [address] [facility] [address] [place] [address] 09/04/2018 13:40:30 09/04/2018 15:35:32 Left lower quadrant pain 480629139 R10.32 LLQ pain with guarding and rebound tenderness r/o diverticul itis, will send for STAT labs and CT today, start antibiotic s, rest, bland diet and call wt update tomorrow. To proceed to ED if getting any worse.ADD: no available appts for CT today, will start on meds and call or ED if worsening or not improving. [id number] Shi Yoon Main Office [address] [facility] [address] [place] [address] 09/19/2018 09:12:04 09/19/2018 10:12:05 History of diverticulitis 5458313445 33614 Z87.19 Pt much improved, diverticul itis seems to have resolved. She has residual mild intermitte nt lower abd pain with normal exam today. Low residue diet, keep hydrated and advance to full diet in the next weeks. Call if any recurrence . Will see GI in followup to see if colonoscop y is needed. Left lower quadrant pain 466722454 R10.32 [id number] Nick Kendrick PA-C Main Office [address] [address] [place] [address] 05/13/2019 14:06:07 05/13/2019 15:32:15 Fever 681017021 R50.9 Acute sinusitis 91915273 J01.90 [id number] Mely Kendrick PA-C Main Office [address] [address] [place] [address] 07/03/2019 09:07:36 07/03/2019 14:07:39 Productive cough 01514876 R05 Pt. is advised to take Abx as discussed, cough meds Mucinex DM BID and inhaler for interm. wheezing. Wheezing 43796610 R06.2 [id number] Mely Kendrick PA-C Main Office [address] [address] [place] [address] 04/12/2020 09:51:47 04/12/2020 11:08:44 Needs influenza immunization 815174936 Z23 Adult heal th examination 826865336 Z00.00 Discussed healthy diet and exercise recommenda tions. Advised on monthly self breast examinatio ns. Labs to be done fasting to screen for metabolic disease. PT. is advised to lose weight to achieve BMI of under 25. Refuses flu vaccine. Hyperlipidemia 10741584 E78.00 Overweight 662611851 E66 .3 Increase exercise activity to 30 minute walking at least 4 days weekly. Pt. agrees to walk and lower total calories. Leukopenia 01038058 D72. 819 Allergy to food 25046458 1 T78.1XXA Osteopenia 627855340 M85 .80 continue calcium and vit D. , repeat Vit D levels. Body mass index 25-29 - overweight 756861060 E66.3 Z68.28 [id number] Florecita Cee MA Main Office [address] [address] [place] [address] 05/16/2020 11:30:00 05/16/2020 11:44:28 Tuberculosis screening 085316630 Z11.1 [id number] Florecita Cee MA Main Office [address] [facility] [place] [address] 05/18/2020 11:15:00 05/18/2020 11:17:55 [id number] Mely Kendrick PA-C [employer] [address] [address] [place] [address] 06/29/2020 11:43:25 06/29/2020 15:33:12 Gastro-esophageal reflux disease with esophagitis 524598135 K21.00 Symptoms appear to be related to esophagiti s with spasm. It partially improved on omeprazole 20. I would like her to try 40 mg daily and take Tums before each meal and be seen in GI consultati on. I will also await and review er notes. [id number] Shi Yoon Main Office [address] [address] [place] [address] 05/09/2021 08:56:15 05/09/2021 09:54:55 Adult health examination 243000215 Z00.00 Discussed healthy diet and exercise recommenda tions. Advised on monthly self breast examinatio ns. Pt. refused flu vaccine. Influenza vaccination declined 549622347 Z28.21 Osteopenia 601944725 M85 .80 continue calcium and vit D. , repeat Vit D levels.Rep eat bone density scan. Diverticular disease 397 053142 K57.90 Colonoscop y is not due until 2022. Gastro-eso phageal reflux disease with esophagitis 382752771 K21.00 Stable. Leukopenia 01967246 D72. 819 repeat CBC. Hyperlipidemia 59521245 E78.00 Body mass index 25-29 - overweight 058463533 Z68.28 Right flank pain 5386056 09 R10.9 ? renal or ureteral calculus. Elevated blood-pressure reading without diagnosis of hypertension 029005977 R03.0 Lower caffeine to 1 cup daily. Test BP daily at home. Return in 2 weeks. Lower sodium. Overweight 316978597 E66 .3 Increase exercise activity to 30 minute walking at least 4 days weekly. Pt. agrees to walk and lower total calories. [id number] Mely Kendrick PA-C Main Office [address] [address] [place] [address] 05/16/2021 08:41:55 05/16/2021 09:25:34 Essential hypertension 14396022 I10 Start taking amlodipine at 5 mg daily. Follow low sodium and low caffeine diet . Return in 4 weeks. test BP at home every other day. [id number] Mely Kendrick PA-C Main Office [address] [address] [place] [address] 06/16/2021 08:42:48 06/16/2021 09:11:22 Essential hypertension 39587271 I10 Improved blood pressure on amlodipine 5 mg. Pt. will continue testing bp weekly, low sodium low caffeine. Return in 3 m. [id number] Main Office [address] [address] [place] [address] 03/20/2022 14:39:34 03/20/2022 15:40:37 Essential hypertension 58796397 I10 stable HTN on amlodipine . Continue low sodium diet. Diverticul itis of colon 821296430 K57.32 acute diverticul itis, r/o abscess. WE will schedule STAT CT abs and pelvis, labs : cbc and bmp. Fluids and diverticul itis diet. Begin abx as directed. If not improved w/i 24 hr or worse, recommende d to go to the ER. SChedule f/u with the GI and pt. will need repeat colonoscop y . Abdominal pain 86826967 R10.9 [id number] Mely Kendrick PA-C Main Office [address] [address] [place] [address] 05/22/2022 15:07:46 05/22/2022 15:51:39 Adult health examination 221727338 Z00.00 Discussed healthy diet and exercise recommenda tions. Advised on monthly self breast examinatio ns. Pt. refused flu vaccine. Up to date o Tdap until 2023. Essential hypertension 00135800 I10 Pt. is not taking amlodipine regularly and bp is elevated today. Advised to restart medicine, take daily, test bp 2-3 times weekly and continue low sodium low caffeine diet. Gastro-eso phageal reflux disease with esophagitis 761405397 K21.00 Stable. Hyperlipidemia 53803109 E78.00 repeat fasting labs. Osteopenia 561668427 M85 .80 continue calcium and vit D. , repeat Vit D levels. Body mass index 25-29 - overweight 487072410 E66.3 Z68.28 lower total calories and carbs, increase exercise activity by walking 4 times weekly. Diverticul itis of colon 696696112 K57.32 stable. Colonoscop y is due in 2024 [id number] Maddie Cross Main Office [address] [place] [address] 07/13/2022 12:58:48 07/13/2022 13:46:12 Essential hypertension 68347812 I10 had not been taking BP med, will try to take later today and recheck at ov in a few weeks. Pneumonia 381746369 J18. 9 Rest, hydration, check cxr now and labs. Will treat with augmentin and prednisone after cxr ans labs today. Call if not better in a few days, ED if worse Wheezing 11794956 R06.2 wheezing with cough, start albuterol and if labs ok will add prednisone 40 mg x 5 days Decrease in appetite 643 68547 R63.0 wt loss and anorexia, check labs Health Concerns Section Related Observation LastModified by Organization Detai ls LastModified Time None Recorded Concern Status LastModified by Organization Details LastModified Time None Recorded Advance Directives Directive Y: HCP Payers Encounter Date Sequence Insurance Name Policy Number Policy Smith Covered Member ID Smith Member ID Guarantor Name 05/16/2021 1 [facility] [id number] 1 Catie Rodriguez 06/16/2021 1 [facility] [id number] 1 Catie Rodriguez 03/20/2022 1 [facility] Rodriguez [id number] 1 Catie Rodriguez 05/22/2022 1 [facility] [id number] 1 Catie Rodriguez 07/13/2022 1 [facility] [id number] 1 Catie Rodriguez Notes Date Note Type Note Provider Name and Address Organization Details Recorded Time 05/16/2021 text/html Hypertension F/UReported bypatient.Associated Symptoms:no dizziness; no lightheadedness; no chest pain; no shortness of breath; no palpitations; no edema; no calf pain with exertion Lifestyle:limiting/sandra iding salt;not exercising regularly Medications:checks blood pressure at home, range:Notes:Lowest bp at home was 129/84, highest was 150/105. All readings were abnormal at home and today in office bp is 156/101. Mely Kendrick PA-C [address] [address], [place], [address], [facility] 05/16/2021 10:03:30 06/16/2021 text/html Hypertension F/UReported bypatient.Associated Symptoms:no dizziness; no lightheadedness; no chest pain; no shortness of breath; no palpitations; no edema; no calf pain with exertion Lifestyle:limiting/sandra iding salt; Started exercising 2-3 times weekly Medications:taking medications as directed; no side effects from medication; checks blood pressure at home, range:Notes:Has no bp readings from home but office bp is improved and in the target range. Pt. tolerates amlodipine well. Mely Kendrick PA-C [address] [address], [place], [address], [facility] 06/16/2021 12:46:14 03/20/2022 text/html 66 year old clay le accompanied by her daughter for HTN f/u. Pt. c/o LLQ abdominal ;pain started about a week ago. Pt. had diverticulitis 3 years ago and had colonoscopy showing sigmoid diverticulosis. NO recurrence until this time. Feels the same way. Diarrhea. No fever, chills. Mely Kendrick PA-C [address] [address], [place], [address], [facility] 03/20/2022 15:36:15 03/20/2022 text/html Hypertension F/UReported bypatient.Associated Symptoms:no dizziness; no lightheadedness; no chest pain; no shortness of breath; no palpitations; no edema; no calf pain with exertion Lifestyle:limiting/sandra iding salt Medications:taking medications as directed; no side effects from medicationNotes:BP is stable on amlodipine 5 mg. 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 Vaccines : had 3 COVID vaccines, Tdap up to date. NO flu vaccine.Last colonoscopy in 2019 with 5 year recall. NO changes in bowel habits reported.BP is elevated today, but normal at home. Tests every 2-3 days. Highest reading was under 135/85. Denies headaches, chest pain, leg pain, dyspnea. Pt. reports drinking 2-3 cups of coffee per day. Has low sodium diet.Exercise: uses stationary equipment 2 times weekly at home.Nonsmoker. ETOH----occasional only.Hypertension. Pt. is off medication today. BP is elevated. Reports drinking 2-3 cups of coffee daily.GERD is improved.Osteopenia. Last bone density was positive for osteopenia in 2021. Pt. takes calcium with Vit D twice daily.Hyperlipidemia. Last LDL 1 year ago was 137, TC 227, HDL 59.BMI is over 28.8.last colonoscopy in 2019 with 5 year recall. PT. has h/o diverticulitis. Mely Kendrick PA-C [address] [facility] [address], [place], [address], [facility] 05/22/2022 15:54:42 07/13/2022 text/html Pt has been ill for 2-3 weeks, started with hives, thought related to food but better with benadryl.After hives, began with flu sx diarrhea, cough , fever, treated with otc meds felt better for a few days.Now has a persistent cough, discomfort in the mid chest, productive for mucous. + wheezing, some SOB, cough keeps her awake at night. NO exertional CP. No nasal sx or sore throat. Diarrhea better but vomited yesterday x2, none today. No recent fever or chills. Anorexia , lost wt and not taking BP med due to nausea.Headache top and sides and head, pressure like on and off 7/10 at the worst, better with tylenol, no focal neuro sx, no red flag sx no vision jones. covid negative at home several times Maddie tyler [facility] 07/13/2022 16:51:01 OBGyn Episode No OBEpisode recorded.
--- OUTSIDE RECORDS SUMMARY | 2024-07-11 07:43 | XMS_ITS ---
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 Metabolic Panel ([id number] 2024 Next Appt Details Provider Name:Mabel Delatorre oneil, 07/22/2024 09:10:00 AM, [facility] , [place], [address], Provider Name:Mabel riggs, 06/21/2025 09:00:00 AM, [employer], [facility] [address], [place], [address], Progress Notes * NORBERTO FERGUSON:1955 ([age] yo F)Acc No.[id number]:05/08/2024 Patient:CATIE GOLDSTEIN :1955???Age:68 Y???Sex:Female Address:[address] [place] [address] [place], [address] Subjective: * Chief Complaints: * ???BONE DENSITY * Medical History:? * Surgical History:? * Hospitalization/Major Diagno stic Procedure:? * Medications:? Objective: * Vitals:? * Physical Examination:? Assessment: * Assessment: 1.?Other specified disorders of bone density and structure, multiple sites - M85.89??? Plan: * Treatment: * Procedure Codes:? * * Date:?
--- OUTSIDE RECORDS SUMMARY | 2024-07-11 07:43 | XMS_ITS ---
Author Organization [employer] [facility] Address [address] [place] [address] Care Team Providers Care Truck Body Repairer Name Role Phone Rhonda Ram MD Primary Care Provider Mabel Elizondo Unavailable [phone] REASON FOR VISIT Pat needs osteo work up done Encounters Encounter Location Date Provider Diagnosis [employer] [facility] [address] [place] [address] 05/29/2024 Mabel Matias Plan Of Treatment Next Appt Details Provider Name:Mabel riggs, 07/22/2024 09:10:00 AM, [address], [address], [place], [address], Provider Name:Mabel riggs, 06/21/2025 09:00:00 AM, [address], [address], [place], [address], Progress Notes * JOSE FERGUSONIJEOMAB:1955 ([age] yo F)Acc No.[id number]:05/29/2024 Patient:?CATIE FERGUSON :1955???Age:68 Y???Sex:Female Address:[address] [place] [address], [facility] [place] [address] * true * Date:? Generated for Printi ng/Facharlieg/eTransmitting on:?07/11/2024 07:43 AM EDT
[2024-07-11 12:03] LABS: Cholesterol 213 mg/dL (<200); HDL Cholesterol 48 mg/dL (>40); LDL Cholesterol Calculated 140 mg/dL (<100); Triglycerides 128 mg/dL (<150)
== END 2024-07-11 07:41 | disposition home or self-care (01) ==
LOC: HO.HMGCLDS 07:40
PROVIDERS: PCP Internal Medicine; Visit Provider Internal Medicine
DX: Z00.00 Encounter for general adult medical examination without abnormal findings (principal); I10 Essential (primary) hypertension; E55.9 Vitamin D deficiency, unspecified
CPT/HCPCS: 36415; 80061

== ENCOUNTER 2024-09-08 10:59 | Outpatient (REF) | payer MEDICARE, SELFPAY ==
[2024-09-08 14:01] LABS: Basophils Percent Auto 0.3 % (0-2); Eosinophils Absolute Auto 0.1 X10*3/uL (0.0-0.4); Eosinophils Percent Auto 3.4 % (0-4); Hematocrit 34.7 % (37.0-47.0); Hemoglobin 11.4 g/dl (12.0-16.0); Lymphocytes Absolute Auto 1.7 X10*3/uL (1.2-4.9); Lymphocytes Percent Auto 59.2 % (20-40); MANUAL DIFF FLAG SCAN; Mean Corpuscular HGB Conc 32.9 g/dl (31.0-35.0); Mean Corpuscular Volume 82.2 fL (80.0-98.0); Monocytes Absolute Auto 0.3 X10*3/uL (0.1-1.2); Monocytes Percent Auto 9.2 % (2-11); Neutrophils Absolute Auto 0.8 x10*3/uL (2.0-8.3); Neutrophils Percent Auto 27.9 % (45-73); Platelet Count 282 X10*3/uL (160-400); Red Blood Count 4.22 X10*6/uL (4.20-5.50); Red Cell Distribution Width 14.5 % (11.0-16.0); SCAN SMEAR FLAG 1; White Blood Count 2.9 X10*3/uL (4.8-10.8)
[2024-09-08 14:21] LABS: SLIDE REVIEW VERIFIED
[2024-09-08 14:38] LABS: Alanine Aminotransferase 59 U/L (0-31); Albumin Level 4.2 g/dL (3.5-5.0); Alkaline Phosphatase 117 U/L (39-117); Anion Gap 9 (12-20); Aspartate Amino Transferase 41 U/L (5-31); Bilirubin Total 0.4 mg/dL (0.0-1.0); Blood Urea Nitrogen 17 mg/dL (9-16); Calcium 9.2 mg/dL (8.4-10.2); Carbon Dioxide 26 mmol/L (22-29); Chloride 108 mmol/L (96-108); Estimated Glomerular Filt Rate > 60; Glucose Random 87 mg/dL (60-115); Potassium 4.3 mmol/L (3.3-5.1); Sodium 139 mmol/L (135-145); Total Protein 6.9 g/dL (6.5-8.0)
== END 2024-09-08 11:00 | disposition home or self-care (01) ==
LOC: HO.HMGCLDS 10:59
PROVIDERS: PCP Internal Medicine; Visit Provider Internal Medicine
DX: Z01.818 Encounter for other preprocedural examination (principal); H02.403 Unspecified ptosis of bilateral eyelids; I10 Essential (primary) hypertension; Z79.899 Other long term (current) drug therapy; Z00.00 Encounter for general adult medical examination without abnormal findings
CPT/HCPCS: 36415; 80053; 85025; 99212

== ENCOUNTER 2024-09-08 10:59 | Outpatient (AMB) | payer MEDICARE, SELFPAY ==
[2024-09-08 11:07] VITALS: BP 120/78; PULSE 80; RESP 18; TEMP 36.8; O2SAT 98; BMI 28.2
--- NOTE | 2024-09-08 11:07 | MHC.PC.OV ---
Vital Signs 09/08/24 11:07 Height 5 ft 2 in Weight 154 lb BMI 28.2 BP 120/78 Blood Pressure Location Lt brachial Position Sitting Respiration 18 Pulse 80 Pulse Source Pulse Oximeter Temp 98.2 F Temp Source Oral Pulse Oximetry (%) 98 Oxygen Delivery Method Room Air Intake Visit Reasons: Pre op upper Blepharoplasty 09/21/24 Intake Note: Pt is here today for a pre op visit. Pt is having upper blepharoplasty on 09/21/24. Allergies morphine [MORPHINE] Allergy (Unknown, Unverified 09/08/24 11:23) ITCHING dallin Allergy (Verified 09/08/24 11:23) rash itchy wheat [WHEAT] Adverse Reaction (Unknown, Unverified 09/08/24 11:23) NAUSEA/VOMITING eggs Allergy (Intermediate, Uncoded 09/08/24 11:23) rash, vomiting Medication List - Last Reconciled 09/08/24 by Rhonda Ram MD amlodipine 10 mg PO DAILY multivitamin 1 tab PO DAILY Tobacco use date assessed: 09/08/24 Dental Screening Dental Screen Date: 06/29/24 HPI Pre op upper Blepharoplasty 09/21/24 HPI Details Pt presents for preop for blepharoplasty. Hypertension is controlled on amlodipine. Patient has been exercising 4 times a week a half an hour. She denies exercise-induced chest pain shortness or breath palpitations. 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 Housing: House Alcohol intake: never Patient Tobacco Use Status: Never used Tobacco e-Cigarette/Vaping Use: Never Used service: No Current occupational status: employed Cognitive needs: No Hearing needs: No Vision needs: Yes Questionnaire Thrive Questionnaire Date Thrive assessed: 06/22/24 I am a: Patient What is your living situation today?: I have a steady place to live Within the past 12 months, did the food you bought not last and you didn't have the money to get more?: Never true Within the past 12 months, did you worry whether your food would run out before you got money to buy more?: Never true Do you have trouble paying for medicines?: No Do you have trouble getting transportation to medical appointments?: No Do you have trouble paying your heating and electricity bill?: No Do you have trouble taking care of your child, family member or friend?: No Do you have trouble with day-to-day activities such as bathing, preparing meals, shopping, managing finances, etc.?: No Are you currently unemployed and looking for a job?: No Are you interested in more education?: No Please select the resources that you would like help with: None Currently or been in a relationship where the following occur: No concerns reported THRIVE Score: 0 KIANA-7 AMB Questionnaire KIANA-7 Date KIANA - 7 assessed: 06/29/24 Source: Developed by Drs. Arpan Cr, Melissa Barnes, Jason Hernandez and colleagues, with an educational jeanne from [employer]. Review of Systems Const All systems reviewed & are unremarkable except as noted in HPI and below ENT Reports no additional complaints Card Reports no additional complaints Resp Reports no additional complaints GI Reports no additional complaints Reports no additional complaints Physical exam (Primary Care) Vital Signs: Last Vital Signs Temp 98.2 F 09/08/24 11:07 Pulse 80 09/08/24 11:07 Resp 18 09/08/24 11:07 BP 120/78 09/08/24 11:07 Pulse Ox 98 09/08/24 11:07 Oxygen Delivery Method Room Air 09/08/24 11:07 BMI result Body Mass Index 28.2 Tobacco/Smoking Status: Tobacco use Status Tobacco use date assessed 09/08/24 09/08/24 11:26 Patient Tobacco Use Status Never used Tobacco 09/08/24 11:07 e-Cigarette/Vaping Use Never Used 09/08/24 11:07 Thrive Assessment: Date of Thrive Assessment Date Thrive assessed 06/22/24 09/08/24 11:07 Currently or been in a relationship where the following occur: No concerns reported Const General: no acute distress HENMT Head: Yes normal to inspection Ears: hearing grossly normal bilaterally Face and sinus: Yes normal facial exam Mouth: Normal oral and palatal mucosa present Neck Neck: Yes supple Resp Effort & Inspection: normal respiratory effort Auscultation: clear to auscultation bilaterally Cardio Rhythm: regular rhythm Heart sounds: S1 normal heart sound present and S2 normal heart sound present GI Inspection: Yes normal to inspection Palpation (GI): Soft to palpation Coding Level of Care Code Est Pt Level 3 (22078) Diagnoses HTN (hypertension) I10 Ptosis of both eyelids H02.403 Assessment & Plan Assessment & Plan (1) HTN (hypertension): Code(s): I10 - Essential (primary) hypertension Category: Medical Plan: Continue amlodipine (2) Ptosis of both eyelids: Code(s): H02.403 - Unspecified ptosis of bilateral eyelids Category: Medical Plan: EKG showed normal sinus rhythm no ST-T changes. Patient is medically cleared for bilateral blepharoplasty Orders: Orders Complete Blood Count Auto Diff Today I10 - Essential (primary) hypertension, Z00.00 - Encounter for general adult medical examination without abnormal findings Comprehensive Met. Panel Today I10 - Essential (primary) hypertension, Z00.00 - Encounter for general adult medical examination without abnormal findings
--- OUTSIDE RECORDS SUMMARY | 2024-09-08 12:37 | XMS_ITS | Clinical Summary ---
Author Organization [facility] Address [address] [place] [address] Phone Care Team Providers Care Linux Unix Engineer Name Role Phone Rhonda Ram MD Primary Care Provider [phone] Allergies Active Allergy Reactions Criticality Noted Date [...] 03/11/2024 9:00 AM EST Plan of Treatment Upcoming Encounters Date Type Department Care Team (Latest Contact Info) Description 09/21/2024 10:30 AM EDT Hospital Encounter [facility] Main OR [address] [place] [phone] Radha Martinez MD [address] [place] [address] 09/21/2024 10:30 AM EDT - 09/21/2024 12:00 PM EDT Surgery [facility] OR [address] [place] [phone] Radha Martinez MD [address] [place] [address] BLEPHAROPLASTY UPPER LIDS [87672 (CPT??)] Scheduled Procedures Name Priority Associated Diagnoses Date/Ti me BLEPHAROPLASTY Encounter for cosmetic surgery 09/21/2024 10:30 AM EDT Health Maintenance Due Date Last Done Comments Breast Cancer Screening 1955 DTaP,Tdap,and Td Vaccines (1 - Tdap) 1976 Pneumococcal Vaccine: 50+ Years (1 of 1 - PCV) 07/31/2007 Zoster Vaccines (1 of 2) 07/31/2007 COVID-19 Vaccine (4 - 2023-2 5 season) 2023 04/11/2021, 08/20/2020, 2020 Depression Screening 01/22/2024 Hepatitis C Screening 01/22/2024 Medicare Annual Wellness Visit 01/22/2024 Osteoporosis Screening (Bone Density Screening) 01/22/2024 Social Influencers of Health Screening 01/22/2024 Influenza Vaccine (Season Ended) 2024 Falls Risk Assessment 03/18/2025 03/18/2024 RSV Immunization [...] age to complete this topic Meningococcal B Vaccine Aged Out No l onger eligible based on patient's age to complete [...] AM EST) Anatomical Region Laterality Modality Endoscopy Historical Provider GI~PROCEDURE ORDERABLES F inal Result from Last 3 Months or Most Recently Relevant to Health Maintenance Insurance [place] [id number] [facility] MEDICARE Member Subscriber Plan / Payer (Ef fective 2022-Present) Name:VIRGINIA RODRIGUEZ Relation to Subscriber:Self Name:Virginia Rodriguez Payer ID:[id number] Group ID:[id number] Type:Not on file Address: [place] [address] [place] [place] [phone] Care Teams Linux Unix Engineer Relationship Specialty Start Date End Date Rhonda Ram MD [address] [facility] [place] [address] PCP - General Internal Medicine 03/18/24
== END 2024-09-08 11:59 | disposition home or self-care (01) ==
LOC: HO.HMCC 10:59
PROVIDERS: PCP Internal Medicine; Visit Provider Internal Medicine
DX: I10 Essential (primary) hypertension (principal); H02.403 Unspecified ptosis of bilateral eyelids

== ENCOUNTER 2024-11-05 09:22 | Outpatient (AMB) | payer MEDICARE, SELFPAY ==
--- OUTSIDE RECORDS SUMMARY | 2024-07-22 05:10 | XMS_ITS ---
Author Organization [facility] [employer] Address [address] [place] [address] Care Team Providers Care Tube Rebuilder Name Role Phone Yo FLORES, Rhonda Primary Care Provider Mabel Elizondo Unavailable [phone] REASON FOR VISIT BD & LAB RESULTS Encounters Encounter Location Date Provider Diagnosis [facility] [employer] [address] [facility] [address] [place] [address] 07/22/2024 Mabel Matias Plan Of Treatment Next Appt Details Provider Name:Mabel riggs, 06/21/2025 09:00:00 AM, [address] [facility], [address], [place], [address], Progress Notes * JANNETH FERGUSONB:1955 ([age] yo F)Acc No.[id number]:07/22/2024 PROGRESS NOTES Patient: CATIE VASQUEZ Appointment Provider: Gt Matias M.D. :1955 A ge:68 Y S ex:Female Date:07/22/2024 Address:[address] [place], [place] [id number] Pcp:Rhonda Ram MD Subjective: * Chief Complaints: * 1 . BD & LAB RESULTS. * Medical History: Objective: * Vitals: Assessment: Plan: * Treatment: * Images: Billing Information: * Visit Code: * Procedure Codes: * Electronic signature of Yao Matias MD on 11/05/2024 at 09:39 AM EDT Sign off status: Pending * Appointment Provider: Gt Matias M.D. Date: 0 07/22/2024 Generated for Sandra zacarias/Matthew/Ernestine on: 0 11/05/2024 09:39 AM EDT
--- OUTSIDE RECORDS SUMMARY | 2024-11-05 09:39 | XMS_ITS | Clinical Summary ---
Author Organization [facility] Address [address] [place] [phone] Phone Care Team Providers Care Carbon Grinder Name Role Phone Rhonda Ram MD Primary Care Provider [phone] Allergies Active Allergy Reactions Criticality Noted Date Comments Egg Swelling Low 03/11/2024 FACIAL/THROAT SWELLING Nikky Swelling,Rash Low 03/11/2024 FACIAL/THROAT SWELLING Morphine GI intolerance 09/08/2024 Other Swelling Low 03/11/2024 WHEAT FLOUR FACIAL/THROAT SWELLING Medications multivitamin tablet Take 1 tablet by mouth 1 (one) time each day. Active amLODIPine (NORVASC) 10 mg tablet Take by mouth 1 (one) time each day. Active Active Problems Problem Noted Date Diagnosed Date HTN (hypertension) 09/21/2024 Encounters Date Type Department Care Team Description 09/21/2024 10:30 AM EDT - 09/21/2024 12:00 PM EDT Surgery [address] [phone] Radha Martinez MD BLEPHAROPLASTY LOWER LIDS [44700 (CPT )] 09/21/2024 10:17 AM EDT Anesthesia Event [address] [phone] Jackeline Cha MD McAdams, Megan, MARY ELLEN 09/21/2024 8:54 AM EDT - 09/21/2024 2:22 PM EDT Hospital Encounter [facility] Main OR [address] [place] [address] Radha Martinez MD Discharge Disposition: Home or Self Care from Last 3 Months Surgical History Surgery Date Site/Laterality Comments DENTAL SURGERY IMPLANTS COLONOSCOPY Medical History Medical History Date Comments Hypertension Social History Tobacco Use Types Packs/Day Years Used Date Smoking Tobacco: Never Smokeless Tobacco: Never Tobacco Cessation:Counseling Given: Not Answered Alcohol Use Standard Drinks/Week Comments Yes 0 (1 standard drink = 0.6 oz pur e alcohol) RARELY Interpersonal Safety Answer Date Record ed Physical Abuse 09/21/2024 Verbal Abuse 09/21/2024 Comments No Sex and Gender Information Value Date Recorded Sex Assigned at Not on file Legal Sex Female 4:34 AM EST Gender Identity Not on file Sexual Orientation Not on file Obstetrics History Last Filed Vital Signs Vital Sign Reading Time Taken Comments Blood Pressure 161/96 09/21/2024 1:25 PM EDT Pulse 68 09/21/2024 1:25 PM EDT Temperature 36.3 C (97.3 F) 09/21/2024 1:25 PM EDT Respiratory Rate 18 09/21/2024 1:25 PM EDT Oxygen Saturation 100% 09/21/2024 1:25 PM EDT Inhaled Oxygen Concentration - - Weight 64.9 kg (143 lb) 09/21/2024 9:18 AM EDT Height 157.5 cm (5' 2 ) 09/21/2024 9:18 AM EDT Body Mass Index 26.16 09/21/2024 9:18 AM EDT Plan of Treatment Health Maintenance Due Date Last Done Comments Pneumococcal Vaccine: 50+ Years (1 of 1 - PCV) 07/31/2007 Zoster Vaccines (1 of 2) 07/31/2007 Breast Cancer Screening 04/15/2022 04/15/2020 DTaP,Tdap,and Td Vaccines (2 - Td or Tdap) 08/05/2023 08/04/2013 COVID-19 Vaccine (4 - 2023-2 5 season) 2023 04/11/2021, 08/20/2020, 2020 Cholesterol Screening (Lipid Panel) 01/22/2024 Hepatitis C Screening 01/22/2024 Medicare Annual Wellness Visit 01/22/2024 Social Influencers of Health Screening 01/22/2024 Depression Screening 04/08/2024 Hypertension/CHF/CAD Annual BMP Blood Test 09/10/2024 Influenza Vaccine (#1) 2024 Falls Risk Assessment 09/21/2025 09/21/2024 Osteoporosis Screening (Bone Density Screening) 01/31/2030 02/01/2020 RSV Immunization Adult Patients (1 - 1-dose [...] Procedure Name Priority Date/Time Associated Diagnosis Comments TH AN LMA(NO CHARGE) Routine 09/21/2024 10:33 AM EDT DC BLEPHAROPLASTY UPPER EYELID WITH EXCESSIVE SKIN WEIGHTING DOWN LID 09/21/2024 10:20 AM EDT Encounter for cosmetic surgery Case Notes CC COLONOSCOPY Routine 03/20/2024 8:43 AM EST from Last 3 Months or Most Recently Relevant to Health Maintenance Results * TH AN LMA(NO CHARGE) (09/21/2024 10:33 AM EDT) Narrative Genoveva Farrell CRNA - 09/21/2024 10:33 AM EDT Genoveva Farrell CRNA 09/21/2024 10:34 AM General Information and Staff Patient location during procedure: OR Performed by: Genoveva Farrell CRNA Authorized by: Jackeline Cha MD Intubation Airway not difficult Urgency: elective Final Airway Details Number of attempts at approach: 1 Ventilation between attempts: BVM Number of other approaches attempted: 0 LMA Size: 4 LMA Type: Classic LMA Seal Pressure: Final airway type: LMA Indications and Patient Condition Indications for airway management: anesthesia Sedation level: Yes Preoxygenated: yes Soft Tissue Damage: No Dentition Unchanged: Yes Patient position: neutral MILS maintained throughout Mask difficulty assessment: 1 - vent by mask us Jackeline Cha MD ANESTHESIA ORDERABLES Final Resu lt * COLONOSCOPY (03/20/2024 8:43 AM EST) Anatomical Region Laterality Modality Endoscopy Historical Provider GI~PROCEDURE ORDERABLES F inal Result from Last 3 Months or Most Recently Relevant to Health Maintenance Insurance [employer] MED[employer] ADVANTAGE Advance Directives * Full Code - Default (Latest Code Status on File) Date Activated Date Inactivated Comments 09/21/2024 9:20 AM 09/21/2024 4:22 PM This is orde r is used when code status has not been discussed with the patient, or code status is otherwise unknown/unconfirmed To update the patient's code status, place a code status order. Do not modify or discontinue any currently active code status orders. Care Teams Carbon Grinder Relationship Specialty Start Date End Date Rhonda Ram MD [address] [place] [address] [place] [address] PCP - General Internal Medicine 03/18/24
--- NOTE | 2024-11-05 09:52 | AM.OFFWIN_ITS ---
Intake Vital Signs 11/05/24 09:55 Height 5 ft 2 in Weight 148 lb BMI 27.1 BP 110/76 Blood Pressure Location Rt brachial Position Sitting Pulse 90 Pulse Source Pulse Oximeter Temp 98.9 F Temp Source Oral Pulse Oximetry (%) 98 Oxygen Delivery Method Room Air Intake Visit Reasons: EP-lower stomach pain, chills Intake Note: pt presents with pain to lower abdomen, frequent urination, body chills Patient Tobacco Use Status: Never used Tobacco Allergies morphine (MORPHINE) Allergy (Unknown, Verified 11/05/24 10:03) ITCHING dallin Allergy (Verified 11/05/24 10:03) rash itchy wheat (WHEAT) Adverse Reaction (Unknown, Verified 11/05/24 10:03) NAUSEA/VOMITING eggs Allergy (Intermediate, Uncoded 09/08/24 11:23) rash, vomiting Do you need a note to return to daycare/school/sports/work: No HPI HPI Comments History of Present Illness Details 69 y/o Female patient who presents to [facility] walk in clinic with c/o Lower abdominal cramping and body chills for 4 days. Denies nausea, vomiting, or fevers. Denies constipation or diarrhea - last BM was yesterday. Denies any recent or previous Abdominal surgeries. Denies Urinary symptoms. Denies Vaginal discharge, itching or Pain. Sexually active with - postmenopausal. Prior h/o Diverticulitis with Hospitalization. 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 Housing: House Alcohol intake: never Patient Tobacco Use Status: Never used Tobacco e-Cigarette/Vaping Use: Never Used service: No Current occupational status: employed Cognitive needs: No Hearing needs: No Vision needs: Yes Review of Systems Const All systems reviewed & are unremarkable except as noted in HPI and below Physical Exam Vital Signs: Last Vital Signs Temp 98.9 F 11/05/24 09:55 Pulse 90 11/05/24 09:55 BP 110/76 11/05/24 09:55 Pulse Ox 98 11/05/24 09:55 Oxygen Delivery Method Room Air 11/05/24 09:55 BMI result Body Mass Index 27.1 Const General: no acute distress (But appears to be in much Pain. Limited Abdominal exam due to pain.); No comfortable Nutritional Appearance: well nourished Orientation/consciousness: patient oriented x3 Resp Effort & Inspection: normal respiratory effort Auscultation: clear to auscultation bilaterally Cardio Heart sounds: S1 normal heart sound present and S2 normal heart sound present GI Palpation (GI): Soft to palpation, not firm, Tenderness to palpation present (GI) in the RLQ and suprapubicly, Guarding due to palpation present (GI) in the RLQ, not rigid, No hepatosplenomegaly present, no hernias, no masses, No Ascites present and Rebound tenderness present Auscultation: Hypoactive bowel sounds present Rectal Exam - Female: deferred Neuro General: patient oriented x3, gait normal and moves all extremities Psych Speech and movement: Normal speech and movement present Results AMB Urinalysis, Automated UA Leukoctes 15 Leticia/uL Last Edit by Belén Campbell MA on 11/05/24 10:10 UA Nitrite Negative Last Edit by Belén Campbell MA on 11/05/24 10:10 UA Urobilinogen 0.2 mg/dL Last Edit by Belén Campbell MA on 11/05/24 10:10 UA Protein 0 mg/dL Last Edit by Belén Campbell MA on 11/05/24 10:10 UA pH 6.5 Last Edit by Belén Campbell MA on 11/05/24 10:10 UA Blood 0 Dennis/uL Last Edit by Belén Campbell MA on 11/05/24 10:10 UA Specific [place] 1.015 Last Edit by Belén Campbell MA on 11/05/24 10:1 0 UA Ketone Negative Last Edit by Belén Campbell MA on 11/05/24 10:10 UA Bilirubin 0 mg/dL Last Edit by Belén Campbell MA on 11/05/24 10:10 UA Glucose 0 mg/dL Last Edit by Belén Campbell MA on 11/05/24 10:10 Results Reviewed Results Reviewed: Laboratory Last Values Urine pH (Auto) 6.5 11/05/24 10:04 Specific [place] (Auto) 1.015 11/05/24 10:04 Urine Protein (Auto) 0 mg/dL 11/05/24 10:04 Glucose (UA)(Auto) 0 mg/dL 11/05/24 10:04 Urine Ketones (Auto) Negative 11/05/24 10:04 Urine Blood (Auto) 0 Dennis/uL 11/05/24 10:04 Urine Nitrite (Auto) Negative 11/05/24 10:04 Urine Bilirubin (Auto) 0 mg/dL 11/05/24 10:04 Urine Urobilinogen (Auto) 0.2 mg/dL 11/05/24 10:04 Leukocyte Esterase (Auto) 15 Leticia/uL H 11/05/24 10:04 Assessment & Plan Assessment & Plan (1) Generalized abdominal pain: Code(s): R10.84 - Generalized abdominal pain Plan: Advised Patient to go to the Emergency room for further evaluation. Unable to determine a clear etiology at this time. Prior h/o Diverticulitis with Hospitalization. Urinalysis only positive for Trace LETICIA, neg NIT Orders: Orders AMB Urinalysis Automated Today Z13.9 - Encounter for screening, unspecified Coding Level of Care Code Est Pt Level 4 (01630) Diagnoses Generalized abdominal pain R10.84 Time Spent (min) 20
[2024-11-05 09:55] VITALS: BP 110/76; PULSE 90; TEMP 37.2; O2SAT 98; BMI 27.1
== END 2024-11-05 10:31 | disposition home or self-care (01) ==
PROVIDERS: PCP Internal Medicine; Visit Provider Nurse Practitioner Family
DX: R10.84 Generalized abdominal pain (principal); Z13.9 Encounter for screening, unspecified

== ENCOUNTER → 2024-11-05 09:22 | Outpatient (BNVA) | payer MEDICARE, SELFPAY | PROVIDERS: PCP Internal Medicine; Visit Provider Nurse Practitioner Family | DX: R10.84 Generalized abdominal pain (principal) | CPT/HCPCS: 81003; 99212 ==

== ENCOUNTER 2024-11-05 10:46 | Emergency (ER) | payer MEDICARE, SELFPAY ==
--- NOTE | ~2024-11-05 | CT_ITS ---
EXAMINATION: CT ABDOMEN AND PELVIS WITH CONTRAST CLINICAL INFORMATION: The left lower quadrant pain, diverticulitis DLP: 364 mGY*cm COMPARISON: None available. TECHNIQUE: Multidetector volumetric images were obtained from the superior aspect of the liver through the pubic symphysis following administration 85 mL of Omnipaque 350 intravenous contrast. Sagittal and coronal reformatted images were obtained on the technologist's workstation. Oral contrast: No This CT examination was performed using dose optimization techniques as appropriate, variously including the following: *Automated exposure control *Adjustment of mA and/or kV according to patient size (this includes techniques or standardized protocols for targeted exams where dose is matched to indication/reason for exam; i.e. extremities or head) *Use of iterative reconstruction technique FINDINGS: LUNG BASES: The visualized lung bases are unremarkable. LIVER, GALLBLADDER, AND BILIARY TREE: The liver is normal in size, shape, and attenuation. No focal hepatic lesion or biliary ductal dilatation is present. The gallbladder is unremarkable with no evidence of radiopaque gallstones, gallbladder wall thickening, or obvious pericholecystic inflammatory changes. PANCREAS: Unremarkable. SPLEEN: Unremarkable. ADRENAL GLANDS: Unremarkable. KIDNEYS AND URETERS: The kidneys are normal in size, shape, and attenuation. No hydronephrosis, hydroureter, or calculi seen. No perinephric stranding. BLADDER: Unremarkable. GASTROINTESTINAL TRACT: Numerous pseudodiverticula are present in the colon including the region of the hepatic flexure, descending, and sigmoid colon. There is focal wall thickening in the lower descending colon involving a 6 cm length of bowel. There is no loculated fluid collection or definite localized extraluminal gas . There is no pneumoperitoneum. The GI tract is unremarkable otherwise. ABDOMINAL WALL: No significant hernia is appreciated. LYMPH NODES: Normal. VASCULAR: Minimal vascular calcifications are identified. PELVIC VISCERA: Uterus is a lobulated contour with coarse calcifications consistent with degenerating leiomyomas. Adnexa are unremarkable. OSSEOUS STRUCTURES: Degenerative endplate sclerosis is present in the anterior superior T12 vertebral body. CT/CT abdomen pelvis w IV con IMPRESSION: Acute diverticulitis, uncomplicated. There is a short segment of the lower descending colon involvement. Fibroid uterus. Fleischner guidelines were followed. Electronically signed by: aDnte Greene MD 11/05/2024 02:29 PM EDT
--- NOTE | 2024-11-05 11:04 | ED_ITS ---
HPI - General Adult General Chief complaint: Abdominal Pain Stated complaint: Lower abd pain Time Seen by Provider: 11/05/24 13:30 Source: patient Mode of arrival: ambulatory Limitations: no limitations History of Present Illness ED Provider: DOLORES IBARRA PA-C HPI narrative: 69-year-old female with past medical history significant for GERD, HTN, hepatic steatosis, diverticulitis presents to the ED today for evaluation of left lower quadrant abdominal pain x3 days. Reports pain begins in her left lower quadrant and radiates to her back. Pain is currently 8/10. 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 Admits to history of similar with diverticulitis. She required hospitalization at that time. Denies fever, chills, flank pain, urinary symptoms, nausea/vomiting/diarrhea. Last bowel movement was yesterday and was normal. Passing flatus. Denies previous abdominal surgeries. Related Data Home Medications ?Medication ?Instructions ?Recorded ?Confirmed multivitamin 1 tab PO DAILY 06/29/24 06/0 06/30 Previous Rx's ?Medication ?Instructions ?Recorded amlodipine 10 mg tablet 10 mg PO DAILY #90 tabs 06/08 05/02 amoxicillin 875 mg-potassium 1 tab PO BID 7 days #14 t abs 11/05/24 clavulanate 125 mg tablet ketorolac 10 mg tablet 10 mg PO Q8H 5 days #15 tabs 11/05/24 Allergies Allergy/AdvReac Type Severity Reaction Status Date / Time morphine (MORPHINE) Allergy Unknown ITCHING Verified 11/05/24 11:06 dallin Allergy rash itchy Verified 11/05/24 11:06 wheat (WHEAT) AdvReac Unknown NAUSEA/VOMI Verified 11/05/24 11:06 TING eggs Allergy Intermediate rash, Uncoded 11/05/24 11:06 vomiting Review of Systems 2 Review of Systems: Constitutional: No fever, chills, fatigue, night sweats, weight changes ENT/Mouth: No ear pain, hearing loss, nasal congestion, sinus pain, rhinorrhea, sore throat Eyes: No eye pain, swelling, redness, vision changes, discharge Cardio: No chest pain, palpitations, DUBON, orthopnea, peripheral edema Pulm: No SOB, cough, sputum, wheezing, dyspnea, hemoptysis GI: No nausea, vomiting, hematemesis, diarrhea, constipation, hematochezia, melena, +abd pain : No irregular bleeding, dysuria, frequency, urgency, hesitancy, hematuria, flank pain, urinary flow changes, urinary incontinence or retention MSK: No back pain, neck pain, joint pain, myalgias Skin: No lesions, rashes Neuro: No weakness, numbness, paresthesias, LOC, dizziness, headache Psych: No anxiety/panic, depression, SI/HI, AH/VH All other systems reviewed and are negative. [facility] Past Medical History Attestation statement: The following information was validated with the patient. 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 Housing: House Alcohol intake: never Patient Tobacco Use Status: Never used Tobacco Smoked in Last 30 Days: No e-Cigarette/Vaping Use: Never Used Use of substances other than those prescribed or required for medical reasons: No Advance Directives: No Advance Directives Information Provided: Yes Do you have a plan to hurt others: No Plan service: No Current occupational status: employed Cognitive needs: No Hearing needs: No Vision needs: Yes Physical Exam ED Vital Signs: Vital Signs - 24 hr 11/05/24 11:05 11/05/24 13:37 Temperature 98 F 98.2 F Pulse Rate 82 76 Respiratory Rate 17 16 Blood Pressure 124/73 145/89 H Pulse Oximetry 98 98 Oxygen Delivery Method Room Air Room Air BMI result Body Mass Index 26.5 vital signs stable, afebrile General: Well appearing, in no acute distress. Skin: Warm, dry, intact. No rashes or lesions. Head: Normocephalic, atraumatic. EENT: Hearing is intact b/l. Conjunctiva clear. Sclera is anicteric. PERRLA. EOM intact. Moist mucous membranes.? Neck: Supple without LAD Cardiac: Chest wall symmetric. RRR Lungs: Normal respiratory effort without accessory muscle use. CTA bilaterally Abdomen: soft, ND, diffusely ttp, guarding LLQ, no rebound. active bs x4. no cvat. negative pillai sign. no mcburney point tenderness. Back: No midline spinous or paraspinal tenderness. No step off deformity. Ext: Upper and lower extremities atraumatic, without tenderness, deformity, swelling or erythema Neuro: AOx3. Normal speech. Ambulating with steady gait. Psych: Appropriate mood and affect. Responds appropriately to questions. Course Course Course Narrative: cbc without leukocytosis or left shift. no anemia, h&h stable. chemistry without acute electrolyte abnormality requiring intervention. no adelfo. liver function around baseline hepatic steatosis. t bili wnl - unlikely obstructive pathology. lipase wnl. UA showing moderate leukocyte esterase, 21-50 WBCs, 1+ urine bacteria and 6-10 squamous epithelial cells. No urinary symptoms. Will await culture for treatment. Question contamination. CT abdomen/pelvis showing acute diverticulitis, uncomplicated. Short segment of the lower descending colon involved. Incidental finding of fibroid uterus. > patient treated w/ toradol + IVF with improvement in discomfort. > discussed all work up results w/ patient. will treat w/ augmentin. first dose given in ED today. given morphine allergy, will send patient home w/ toradol for pain control. Patient has remained stable throughout ED visit today. Discussed worrisome signs and symptoms and when to return to the ED. All questions answered at this time. Patient is agreeable with disposition and stable for discharge. Medications Administered Discontinued Medications Generic Name Dose Route Start Last Admin Trade Name Freq PRN Reason Stop Dose Admin Sodium Chloride 1,000 mls @ 999 mls/hr 11/05/24 13:45 11/05/24 13:46 Ns IV 11/05/24 14:45 999 mls/hr .Q1H1M ABIGAIL Administration Iohexol 100 ml 11/05/24 14:01 11/05/24 14:01 Iohexol 350 Mg/Ml 100 Ml Infus..Btl IV 11/05/24 14:02 85 ml ONCE ONE Administration Ketorolac Tromethamine 30 mg 11/05/24 13:40 11/05/24 13:46 Ketorolac Tromethamine 30 Mg/Ml Vial IVPUSH 11/05/24 13:41 30 mg ONCE ONE Administration Medical Decision Making Medical Decision Making [facility] Narrative: 69-year-old female with past medical history significant for GERD, HTN, hepatic steatosis, diverticulitis presents to the ED today for evaluation of left lower quadrant abdominal pain x3 days. vital signs stable, afebrile. she is uncomfortable appearing however in NAD. on exam, abdomen soft, ND, diffusely ttp, guarding LLQ, no rebound. active bs x4. no cvat. negative pillai sign. no mcburney point tenderness. Differential diagnoses: appendicitis, diverticulitis, diverticulosis, UTI, constipation Abdominal exam without peritoneal signs. No evidence of acute abdomen at this time. Well appearing. Low suspicion for acute hepatobiliary disease (including acute cholecystitis), acute infectious processes (pneumonia, hepatitis, pyelonephritis, PID, TOA), vascular catastrophe, bowel obstruction or viscus perforation, ovarian cyst/ rupture/ torsion, ectopic. Presentation not consistent with other acute, emergent causes of abdominal pain at this time. Plan: labs, UA, CT AP, pain control, fluids, serial reassessment Differential Diagnosis Differential Diagnoses: The differential diagnosis associated with the presentation includes as above. Admission/Observation Consideration of admission/observation: Escalation of care including admission/observation considered Lab Data [facility] Lab Attestation statement: I reviewed the patient's lab results. as above. 11/05/24 11:43 11/05/24 11:43 Labs: Lab Results 11/05/24 11/05/24 Range/Units 11:41 11:43 WBC 8.0 (4.8-10.8) X10*3/uL RBC 4.36 (4.20-5.50) X10*6/uL Hgb 12.1 (12.0-16.0) g/dl Hct 35.4 L (37.0-47.0) % MCV 81.2 (80.0-98.0) fL MCH 27.8 (27.0-33.0) pg MCHC 34.2 (31.0-35.0) g/dl RDW 14.3 (11.0-16.0) % Plt Count 253 (160-400) X10*3/uL MPV 9.4 (9.4-12.3) fL Immature Gran % (Auto) 0.3 (0.0-0.4) % Neut % (Auto) 67.6 (45-73) % Lymph % (Auto) 23.9 (20-40) % Parmer % (Auto) 7.6 (2-11) % Eos % (Auto) 0.5 (0-4) % Baso % (Auto) 0.1 (0-2) % Lymph # (Auto) 1.9 (1.2-4.9) X10*3/uL Parmer # (Auto) 0.6 (0.1-1.2) X10*3/uL Eos # (Auto) 0.0 (0.0-0.4) X10*3/uL Baso # (Auto) 0.0 (0.0-0.2) X10*3/uL Abs Immat Gran (auto) 0.02 (0.00-0.03) X10*3/uL Absolute Neuts (auto) 5.4 (2.0-8.3) x10*3/uL Absolute Nucleated RBC 0.000 (0.0-0.012) X10*3/uL Nucleated RBC % (auto) 0.0 (0.0-0.2) /100WBC Sodium 137 (135-145) mmol/L Potassium 4.4 (3.3-5.1) mmol/L Chloride 104 (96-108) mmol/L Carbon Dioxide 25 (22-29) mmol/L Anion Gap 12 (12-20) BUN 11 (9-16) mg/dL Creatinine 0.99 (0.5-1.4) mg/dL Estim Creat Clear Calc 49.0 Estimated GFR 56 Random Glucose 99 (60-115) mg/dL Calcium 9.3 (8.4-10.2) mg/dL Magnesium 2.1 (1.6-2.6) mg/dL Total Bilirubin 0.6 (0.0-1.0) mg/dL AST 42 H (5-31) U/L ALT 49 H (0-31) U/L Alkaline Phosphatase 152 H (39-117) U/L Total Protein 7.6 (6.5-8.0) g/dL Albumin 4.5 (3.5-5.0) g/dL Lipase 22 (8-78) U/L Urine Color Yellow Urine Appearance Clear Urine pH 7.0 (5.0-9.0) Ur Specific Mathe[place] 1.015 (1.005-1.025) Urine Protein Negative (Neg-Trace) mg/dL Urine Glucose (UA) Negative (Negative) mg/dL Urine Ketones Negative (Negative) mg/dL Urine Blood Negative (Negative) Urine Nitrite Negative (Negative) Ur Leukocyte Esterase Moderate (2+) H (Negative) Urine RBC 0-2 (0-2) /HPF Urine WBC 21-50 H (0-5) /HPF Ur Squamous Epith Cells 6-10 (0-2) /HPF Urine Bacteria 1+ (None Seen) Hyaline Casts 0-2 (0-2) /LPF Independent Interpretation I performed an independent interpretation of an: CT Scan Interpretation: ct a/p without bowel obstruction or abscess Radiology Impression Discussion of test interpretation with radiology: I have reviewed the radiologist's reading. Radiologist Impression: Procedure(s): CT abdomen pelvis w IV con Accession Number(s): [id number] cc: Rhonda Ram MD; Dolores Ibarra~ Report Number: [id number]: Total DLP = 364.00 mGy-cm EXAMINATION: CT ABDOMEN AND PELVIS WITH CONTRAST CLINICAL INFORMATION: The left lower quadrant pain, diverticulitis DLP: 364 mGY*cm COMPARISON: None available. TECHNIQUE: Multidetector volumetric images were obtained from the superior aspect of the liver through the pubic symphysis following administration 85 mL of Omnipaque 350 intravenous contrast. Sagittal and coronal reformatted images were obtained on the technologist's workstation. Oral contrast: No This CT examination was performed using dose optimization techniques as appropriate, variously including the following: *Automated exposure control *Adjustment of mA and/or kV according to patient size (this includes techniques or standardized protocols for targeted exams where dose is matched to indication/reason for exam; i.e. extremities or head) *Use of iterative reconstruction technique FINDINGS: LUNG BASES: The visualized lung bases are unremarkable. LIVER, GALLBLADDER, AND BILIARY TREE: The liver is normal in size, shape, and attenuation. No focal hepatic lesion or biliary ductal dilatation is present. The gallbladder is unremarkable with no evidence of radiopaque gallstones, gallbladder wall thickening, or obvious pericholecystic inflammatory changes. PANCREAS: Unremarkable. SPLEEN: Unremarkable. ADRENAL GLANDS: Unremarkable. KIDNEYS AND URETERS: The kidneys are normal in size, shape, and attenuation. No hydronephrosis, hydroureter, or calculi seen. No perinephric stranding. BLADDER: Unremarkable. GASTROINTESTINAL TRACT: Numerous pseudodiverticula are present in the colon including the region of the hepatic flexure, descending, and sigmoid colon. There is focal wall thickening in the lower descending colon involving a 6 cm length of bowel. There is no loculated fluid collection or definite localized extraluminal gas . There is no pneumoperitoneum. The GI tract is unremarkable otherwise. ABDOMINAL WALL: No significant hernia is appreciated. LYMPH NODES: Normal. VASCULAR: Minimal vascular calcifications are identified. PELVIC VISCERA: Uterus is a lobulated contour with coarse calcifications consistent with degenerating leiomyomas. Adnexa are unremarkable. OSSEOUS STRUCTURES: Degenerative endplate sclerosis is present in the anterior superior T12 vertebral body. CT/CT abdomen pelvis w IV con IMPRESSION: Acute diverticulitis, uncomplicated. There is a short segment of the lower descending colon involvement. Fibroid uterus. Fleischner guidelines were followed. Electronically signed by: Dante Greene MD 11/05/2024 02:29 PM EDT RP Independent Historian Clinical information obtained from an independent historian. History obtained from or confirmed by: Spouse External Record Review External record reviewed: Inpatient record Prescription Management I considered prescription management with: Pain Medication and Antibiotic (augmentin) Chronic Conditions Patient?s care impacted by: Other (diverticulitis ) Social Determinants Patient?s care significantly limited by Social Determinants of Health including: Other Social Determinant of Health Critical Care Time Critical Care Time Critical Care Time: No Discharge Plan Discharge Clinical Impression: Diverticulitis Patient Disposition: Home, Self-Care Instructions: Diverticulitis (ED) Additional Instructions: You were evaluated in the ED today for your abdominal pain. Your labs are reassuring. The CT scan of your abdomen shows acute diverticulitis. See home care instructions. Treatment for this is with antibiotics. Augmentin is an antibiotic that has been sent to your pharmacy. Take this as prescribed and to completion. On Augmentin, softer bowel movements are to be expected. Call your provider if you move your bowels more than 4 times a day, your bowel movements are almost all liquid, or you get a rash.? Toradol is an anti-inflammatory pain control medication that has been sent to your pharmacy. Do not take this with other NSAIDs such as Motrin/ibuprofen as this can cause increased risk of GI bleeding. Follow up with your primary care provider. Return with any new or worsening symptoms. In the case of an emergency call 911. Prescriptions: New amoxicillin-pot clavulanate 875-125 mg tablet 1 tab PO BID 7 Days Qty: 14 0RF ketorolac 10 mg tablet 10 mg PO Q8H 5 Days Qty: 15 0RF No Action amlodipine 10 mg tablet 10 mg PO DAILY Qty: 90 3RF multivitamin Tablet 1 tab PO DAILY Referrals: Rhonda Ram MD [Primary Care Provider, Internal Medicine] Print Language: Sinhala
[2024-11-05 11:05] VITALS: BP 124/73; PULSE 82; RESP 17; TEMP 36.6; O2SAT 98; BMI 26.5
[2024-11-05 11:48] LABS: MANUAL DIFF FLAG NO
[2024-11-05 11:51] LABS: Hematocrit 35.4 % (37.0-47.0); Hemoglobin 12.1 g/dl (12.0-16.0); Imm Gran Abs Auto 0.02 X10*3/uL (0.00-0.03); Imm Gran Pct Auto 0.3 % (0.0-0.4); Lymphocytes Absolute Auto 1.9 X10*3/uL (1.2-4.9); Mean Corpuscular HGB Conc 34.2 g/dl (31.0-35.0); Mean Corpuscular Hemoglobin 27.8 pg (27.0-33.0); Mean Corpuscular Volume 81.2 fL (80.0-98.0); NRBC Abs Auto 0.000 X10*3/uL (0.0-0.012); NRBC Pct Auto 0.0 /100WBC (0.0-0.2); Platelet Count 253 X10*3/uL (160-400); Red Blood Count 4.36 X10*6/uL (4.20-5.50); White Blood Count 8.0 X10*3/uL (4.8-10.8)
[2024-11-05 11:56] LABS: Appearance Urine Clear; Glucose Urine UA Negative (Negative); PH 7.0 (5.0-9.0); Specific Gravity - Urine 1.015 (1.005-1.025); UMIC TRIGGER UACC YES
[2024-11-05 12:04] LABS: UACC Culture Trigger YES
[2024-11-05 12:05] LABS: Alanine Aminotransferase 49 U/L (0-31); Albumin Level 4.5 g/dL (3.5-5.0); Alkaline Phosphatase 152 U/L (39-117); Anion Gap 12 (12-20); Aspartate Amino Transferase 42 U/L (5-31); Blood Urea Nitrogen 11 mg/dL (9-16); Calcium 9.3 mg/dL (8.4-10.2); Carbon Dioxide 25 mmol/L (22-29); Chloride 104 mmol/L (96-108); Creatinine Clr Calc Pharmacy 49.0; Estimated Glomerular Filt Rate 56; Lipase 22 U/L (8-78); Magnesium 2.1 mg/dL (1.6-2.6); Potassium 4.4 mmol/L (3.3-5.1); Sodium 137 mmol/L (135-145); Total Protein 7.6 g/dL (6.5-8.0)
[2024-11-05 13:37] VITALS: BP 145/89; PULSE 76; RESP 16; TEMP 36.8; O2SAT 98
--- NOTE | 2024-11-05 13:46 | PC.NURSE ---
patient a&ox3, iv inserted, labs previously drawn, pt c/o 11/15 rt abd pain which she describes as sharp in nature. pt medicated for pain, ivf hung per order, call alba within reach, plan of care ongoing
[2024-11-05] MEDS: iohexoL 350 MG/ML 100 ML INFUS..BTL IV (14:01)
[2024-11-05 15:01] VITALS: BP 145/89; PULSE 76; RESP 16; TEMP 36.8; O2SAT 98
== END 2024-11-05 15:12 | disposition home or self-care (01) ==
PROVIDERS: Physician Assistant Medical; Emergency Provider Emergency Medicine Emergency Medical Services; PCP Internal Medicine
DX: K57.32 Diverticulitis of large intestine without perforation or abscess without bleeding (principal); R10.2 Pelvic and perineal pain; I10 Essential (primary) hypertension; R10.32 Left lower quadrant pain; R11.0 Nausea; Z79.899 Other long term (current) drug therapy
CPT/HCPCS: 36415; 74177; 80053; 81001; 83690; 83735; 85025; 87086; 96361; 96374; 99284; 99285; J1885; Q9967

== ENCOUNTER → 2024-11-05 13:30 | Outpatient (BNV) | payer MEDICARE, SELFPAY | PROVIDERS: Emergency Provider Emergency Medicine Emergency Medical Services; PCP Internal Medicine; Visit Provider Radiology Diagnostic Radiology | DX: K57.32 Diverticulitis of large intestine without perforation or abscess without bleeding (principal) | CPT/HCPCS: 74177 ==